=== PATIENT | female | born 1985 | race Caucasian/White ===

== ENCOUNTER 2016-08-14 10:10 | Inpatient (IN) | payer OTHER ==
[~2016-08-14] VITALS: Ht 170.2 cm; Wt 110.4 kg
[2016-08-14] MEDS ORDERED: ONDANSETRON INJ 2 MG/ML 2 ML VIAL IV STA (10:29)
[2016-08-14] MEDS ORDERED: MoRPHine SULFATE 4 MG/ML 1 ML CARP\\VIAL IV STA (10:29)
[2016-08-14] MEDS ORDERED: SODIUM CHLORIDE 0.9% 1000ML 1,000 ML IV STA (10:29)
[2016-08-14] MEDS ORDERED: DiphenhydrAMINE HCL 50 MG/ML VIAL IV STA (10:34)
--- NOTE | 2016-08-14 10:38 | EMERGENCY ROOM VISIT NOTE ---
History Report prepared by Jose Francisco: Eddie Bean Under the Supervision of: Dr. Rita Beaulieu M.D. First contact with patient: 10:25 Chief Complaint: RESPIRATORY PROBLEMS Stated Complaint: SHALLOW/HEAVY BREATHING, CHEST,SIDE,BACK-25 WKS History of Present Illness The patient is a 31 year old female who presents to the Emergency Room with complaints of persistent shortness of breath since last night. The patient notes that crying makes it more difficult to breath. She is also having pain on the left flank. She saw her doctor three days ago and was started on Prednisone. She was diagnosed with costochondritis, and at that time was also having trouble breathing along with cough and chest pain. The patient is on her third and is currently 25 weeks gestation. She has not had any complications with her . She denies any history of blood clots. The patient smokes half a pack of cigarettes per day. Source of History: patient Onset: last night Position: other (respiratory) Quality: other (shortness of breath) Timing: other (persistent) Associated Symptoms: + back pain (left flank), + chest pain, + cough Review of Systems See HPI for pertinent positives & negatives. A total of 10 systems reviewed and were otherwise negative. Past Medical & Surgical Medical Problems: (1) Depression (2) Pneumonia (3) Pulmonary embolism Surgical Problems: (1) S/P section (2) S/P tonsillectomy and adenoidectomy Family History Endometriosis Social History Smoking Status: Current Every Day Smoker Alcohol Use: none Drug Use: none Marital Status: Housing Status: lives with family Occupation Status: unemployed Current/Historical Medications Scheduled Multivit/Min/Iron/Fol Ac/Pren ( Vitamin), 1 TAB PO DAILY Prednisone (Prednisone), 1 TAB PO UD Scheduled PRN Acetaminophen (Tylenol), 650 MG PO Q6 PRN for Pain or Fever Albuterol Sulfate (Proair Respiclick), 2 PUFFS INH QID PRN for SOB/Wheezing Miscellaneous Medications Guaifenesin (Cough Syrup) Ibuprofen (Ibuprofen) Allergies Coded Allergies: No Known Allergies (Unverified , NONE, 06/02/14) Physical Exam Vital Signs Date Time Temp Pulse Resp B/P Pulse Ox O2 Delivery O2 Flow Rate FiO2 08/14/16 12:35 108 20 130/70 93 Room Air 08/14/16 11:55 103 08/14/16 11:44 Room Air 08/14/16 11:42 104 20 111/62 93 Room Air 08/14/16 11:14 98 20 112/76 94 Room Air 08/14/16 10:18 36.5 101 34 127/63 98 Room Air Physical Exam Vital signs reviewed. General: Patient is in significant discomfort, sitting up at bedside. holding her left flank. HEENT: No scleral icterus, PERRLA, neck supple. Atraumatic. Cardiovascular: Regular rate and rhythm, no extra sounds. Pulmonary: Clear to auscultation bilaterally, normal work of breathing. Abdomen: Soft, nontender, nondistended, positive bowel sounds. Gravid abdomen. Musculoskeletal: Atraumatic, no peripheral edema. Tender to palpation over the left thoracic and lumbar paraspinous muscles. No CVA tenderness. Neurologic: Patient awake alert and oriented x 3. Skin: Warm, dry, no rash Medical Decision & Procedures ER Provider Diagnostic Interpretation: X-ray results as stated below per my interpretation and radiologist interpretation. Other radiology results as stated below per my review and radiologist interpretation: CHEST ONE VIEW PORTABLE CLINICAL HISTORY: *BREG* SOB, CP dyspnea COMPARISON STUDY: 07/04/2009 FINDINGS: Bibasilar parenchymal infiltrates. Diminished respiratory volumes. Subtle left perihilar infiltrate. Pulmonary procedure clear. IMPRESSION: Bilateral basilar and perihilar parenchymal infiltrates Electronically signed by: Wicho Ambriz M.D. 08/14/2016 11:02 AM Dictated Date/Time: 08/14/2016 11:01 AM CHEST CTA for PULMONARY ARTERIES CT DOSE: 450.49 mGy.cm HISTORY: Chest pain dyspnea TECHNIQUE: Multiaxial CT images of the chest were performed following the intravenous administration of contrast to evaluate the pulmonary arteries. Maximal intensity projection images were also obtained. COMPARISON STUDY: None. FINDINGS: Study is technically poor due to patient continued aspiration during the study. There is no evidence for a central or main pulmonary embolus. There are findings suspect for second order emboli involving the right as well as left lower lobe pulmonary arterial distributions. Within the left lower lobe this is best seen on transaxial image 58 of series 107. Small circular filling defects are identified in the right lower lobe best seen transaxial image 42. Study again is negative for central or main pulmonary embolus. There are consolidative infiltrative changes within the left base as well as right middle lobe regions. Rounded patchy parenchymal infiltrative changes are identified in the upper lung regions bilaterally. All the study is technically positive for pulmonary emboli, there appear to be potentially 2 separate processes occurring. The parenchymal infiltrative changes do not appear to be suspect for pulmonary infarct. Thoracic aorta is normal in course and caliber. There is no significant hilar or mediastinal dana change. IMPRESSION: 1. Difficult study to interpret. 2. No evidence for a main or central pulmonary embolus. 3. Several small second-order third or emboli primarily involving the left and to a lesser extent right lower lobe distributions. 4. Diffuse bilateral consolidative infiltrative changes in the lower lung regions bilaterally with additional round atelectatic and/or infiltrative changes involving the upper lungs bilaterally. 5. This study does not appear to support the possibility that all findings are secondary to pulmonary emboli,. 6. Possibly of a superimposed multifocal infiltrative/ inflammatory/pulmonary edematous pattern must be a consideration. Electronically signed by: Wicho Ambriz M.D. 08/14/2016 12:31 PM Dictated Date/Time: 08/14/2016 12:15 PM Laboratory Results Test 08/14/16 10:45 Immature Granulocyte % (Auto) 0.6 % White Blood Count 27.19 K/uL (4.8-10.8) Red Blood Count 4.17 M/uL (4.2-5.4) Hemoglobin 12.0 g/dL (12.0-16.0) Hematocrit 34.7 % (37-47) Mean Corpuscular Volume 83.2 fL (80-100) Mean Corpuscular Hemoglobin 28.8 pg (25-34) Mean Corpuscular Hemoglobin Concent 34.6 g/dl (32-36) Platelet Count 352 K/uL (130-400) Mean Platelet Volume 9.7 fL (7.4-10.4) Neutrophils (%) (Auto) 92.3 % Lymphocytes (%) (Auto) 3.8 % Monocytes (%) (Auto) 3.0 % Eosinophils (%) (Auto) 0.0 % Basophils (%) (Auto) 0.3 % Neutrophils # (Auto) 25.14 K/uL (1.4-6.5) Lymphocytes # (Auto) 1.02 K/uL (1.2-3.4) Monocytes # (Auto) 0.81 K/uL (0.11-0.59) Eosinophils # (Auto) 0.00 K/uL (0-0.5) Basophils # (Auto) 0.07 K/uL (0-0.2) Immature Granulocyte # (Auto) 0.15 K/uL (0.00-0.02) Echinocytes 1+ Prothrombin Time 10.2 SECONDS (9.0-12.0) Prothromb Time International Ratio 1.0 (0.9-1.1) Activated Partial Thromboplast Time 28.1 SECONDS (21.0-31.0) Partial Thromboplastin Ratio 1.1 Total Bilirubin 0.4 mg/dl (0.2-1) Direct Bilirubin 0.1 mg/dl (0-0.2) Aspartate Amino Transf (AST/SGOT) 9 U/L (15-37) Alanine Aminotransferase (ALT/SGPT) 26 U/L (12-78) Alkaline Phosphatase 119 U/L (45-117) Troponin I < 0.015 ng/ml (0-0.045) Pro-B-Type Natriuretic Peptide 254 pg/ml (0-450) Total Protein 8.2 gm/dl (6.4-8.2) Albumin 2.6 gm/dl (3.4-5.0) Laboratory results per my review. Medications Administered Medications (Trade) Dose Ordered Sig/Rory Route Start Time Stop Time Status Last Admin Dose Admin Sodium Chloride (Nss 1000ml) 1,000 ml @ 999 mls/hr Q1H1M STAT IV 08/14/16 10:29 08/14/16 11:29 DC 08/14/16 10:29 999 MLS/HR Morphine Sulfate (MoRPHine SULFATE INJ) 4 mg NOW STAT IV 08/14/16 10:29 08/14/16 10:31 DC 08/14/16 11:17 4 MG Ondansetron HCl (Zofran Inj) 4 mg NOW STAT IV 08/14/16 10:29 08/14/16 10:31 DC 08/14/16 11:16 4 MG Diphenhydramine HCl (Benadryl Inj) 25 mg NOW STAT IV 08/14/16 10:34 08/14/16 10:35 DC 08/14/16 11:22 25 MG Albuterol/ Ipratropium (Duoneb) 3 ml NOW STAT INH 08/14/16 11:23 08/14/16 11:25 DC 08/14/16 11:23 3 ML Ceftriaxone Sodium 1 gm 1 gm NOW STAT IV 08/14/16 11:23 08/14/16 11:25 DC 08/14/16 11:23 1 GM Azithromycin/ Dextrose (Zithromax IV/D5 250ml) 255 ml @ 125 mls/hr ONE STAT IV 08/14/16 11:23 08/14/16 13:25 DC 08/14/16 12:30 125 MLS/HR ECG Indication: SOB/dyspnea Rate (beats per minute): 95 Rhythm: normal sinus Findings: T-wave inversion (inferior and lateral), no ectopy ED Course 1025: Past medical records reviewed. The patient was evaluated in room A3. A complete history and physical examination was performed. 1030: Zofran 4 mg IV, Morphine Sulfate 4 mg IV, NSS 1000 ml @ 999 mls/hr. 1034: Benadryl 25 mg IV. 1123: Azithromycin 500 mg / dextrose 255 lm @ 125 mls/hr, Rocephin 1 gm IV, DuoNeb 3 ml INH. 1142: Updated the patient. 1237: Spoke with Dr. Byrd, Numerologist, who recommended medicine be paged. 1245: [facility] The patient will be evaluated. Medical Decision Differential diagnosis: Etiologies such as infections, reactive airway disease, pneumonia, pneumothorax , COPD, CHF, cardiac ischemia, pulmonary embolism, musculoskeletal, gastrointestinal, as well as others were entertained. This patient was evaluated and appeared to be in significant distress. IV access was obtained and laboratory work was drawn. The patient was placed on the hospital medical biller and found to be in a sinus tachycardia. She did seem to be uncomfortable and was given IV morphine 2 doses. Chest x-ray was performed and reveals bibasilar and perihilar infiltrates. CT scan of the chest was performed due to the level of the patient's pain. The CT scan of the chest is indicative of bilateral PE and diffuse infiltrative changes. It does not appear that the infiltrates are related to the PEs. The patient was medicated with IV ceftriaxone and IV azithromycin after blood cultures were obtained. Laboratory work reveals a significant leukocytosis. I discussed the case with Dr. Floyd of [facility] who has requested internal medicine evaluation and admission. He is happy to consult on the patient. Patient was made aware of the findings and agrees. The hospitalist service was contacted. They have requested that no anticoagulants be administered until they evaluate. Consults Time Called: 1230 Consulting Physician: Dr. Floyd Numerologist Returned Call: 1237 1237: Spoke with Dr. Floyd Numerologist, who recommended medicine be paged. Additional Consults: Time Called: 1240 Consulted Physician: Sujata Croft PA-C, [facility]. Returned Call: 1245 Additional Comments: 1245: Spoke with Sujata Croft PA-C, [facility]. The patient will be evaluated. Impression Primary Impression: Pulmonary embolism Additional Impressions: Pneumonia Second trimester Scribe Attestation The scribe's documentation has been prepared under my direction and personally reviewed by me in its entirety. I confirm that the note above accurately reflects all work, treatment, procedures, and medical decision making performed by me. Departure Information Dispostion Being Evaluated By Hospitalist Referrals No Doctor, Assigned (PCP) Patient Instructions My [facility] Problem Qualifiers Primary Impression: Pulmonary embolism Pulmonary embolism type: other Chronicity: acute Acute cor pulmonale presence: without acute cor pulmonale Qualified Codes: I26.99 - Other pulmonary embolism without acute cor pulmonale Additional Impressions: Pneumonia Pneumonia type: due to unspecified organism Laterality: bilateral Lung location: unspecified part of lung Qualified Codes: J18.9 - Pneumonia, unspecified organism
[2016-08-14 10:59] LABS: HEMATOCRIT 34.7 % (37-47); MEAN CELL VOLUME 83.2 fL (80-100); MEAN CORPUSCULAR HEMOGLOBIN 28.8 pg (25-34); MEAN CORPUSCULAR HGB CONC 34.6 g/dl (32-36); MEAN PLATELET VOLUME 9.7 fL (7.4-10.4); PLATELET COUNT 352 K/uL (130-400); RED BLOOD COUNT 4.17 M/uL (4.2-5.4); WHITE BLOOD COUNT 27.19 K/uL (4.8-10.8)
--- NOTE | 2016-08-14 11:04 | DIAGNOSTIC IMAGING REPORT ---
CHEST ONE VIEW PORTABLE CLINICAL HISTORY: *BREG* SOB, CP dyspnea COMPARISON STUDY: 07/04/2009 FINDINGS: Bibasilar parenchymal infiltrates. Diminished respiratory volumes. Subtle left perihilar infiltrate. Pulmonary procedure clear. IMPRESSION: Bilateral basilar and perihilar parenchymal infiltrates Electronically signed by: Wicho Ambriz M.D. 08/14/2016 11:02 AM Dictated Date/Time: 08/14/2016 11:01 AM
[2016-08-14 11:16] LABS: BUN/CREATININE RATIO 11.6 (10-20); CALCIUM 9.4 mg/dl (8.5-10.1); CREATININE 0.88 mg/dl (0.60-1.20); POTASSIUM 3.3 mmol/L (3.5-5.1)
[2016-08-14] MEDS ORDERED: CEFTRIAXONE SOD INJ 1 GM ADDVIAL IV STA (11:23)
[2016-08-14] MEDS ORDERED: ALBUT/IPRATROP 3MG/0.5MG NEB 3 ML VIAL INH STA (11:23)
[2016-08-14] MEDS ORDERED: AZITHROMYCIN IV 500 MG in DEXTROSE 5% 250ML 250 ML IV STA (11:23)
[2016-08-14] MEDS ORDERED: PRED-301 PO (11:45)
[2016-08-14] MEDS ORDERED: PRENTAB26 PO (11:45)
[2016-08-14 11:47] LABS: BASO % 0.3 %; BASO ABS # 0.07 K/uL (0-0.2); COMPLETE YES; ECHINOCYTES 1+; IG% 0.6 %; LYMPH % 3.8 %; LYMPH ABS # 1.02 K/uL (1.2-3.4); NEUT % 92.3 %
[2016-08-14] MEDS ORDERED: OPTIRAY 320 IV PRN (12:15)
--- NOTE | 2016-08-14 12:32 | DIAGNOSTIC IMAGING REPORT ---
CHEST CTA for PULMONARY ARTERIES CT DOSE: 450.49 mGy.cm HISTORY: Chest pain dyspnea TECHNIQUE: Multiaxial CT images of the chest were performed following the intravenous administration of contrast to evaluate the pulmonary arteries. Maximal intensity projection images were also obtained. COMPARISON STUDY: None. FINDINGS: Study is technically poor due to patient continued aspiration during the study. There is no evidence for a central or main pulmonary embolus. There are findings suspect for second order emboli involving the right as well as left lower lobe pulmonary arterial distributions. Within the left lower lobe this is best seen on transaxial image 58 of series 107. Small circular filling defects are identified in the right lower lobe best seen transaxial image 42. Study again is negative for central or main pulmonary embolus. There are consolidative infiltrative changes within the left base as well as right middle lobe regions. Rounded patchy parenchymal infiltrative changes are identified in the upper lung regions bilaterally. All the study is technically positive for pulmonary emboli, there appear to be potentially 2 separate processes occurring. The parenchymal infiltrative changes do not appear to be suspect for pulmonary infarct. Thoracic aorta is normal in course and caliber. There is no significant hilar or mediastinal dana change. IMPRESSION: 1. Difficult study to interpret. 2. No evidence for a main or central pulmonary embolus. 3. Several small second-order third or emboli primarily involving the left and to a lesser extent right lower lobe distributions. 4. Diffuse bilateral consolidative infiltrative changes in the lower lung regions bilaterally with additional round atelectatic and/or infiltrative changes involving the upper lungs bilaterally. 5. This study does not appear to support the possibility that all findings are secondary to pulmonary emboli,. 6. Possibly of a superimposed multifocal infiltrative/ inflammatory/pulmonary edematous pattern must be a consideration. Electronically signed by: Wicho Ambriz M.D. 08/14/2016 12:31 PM Dictated Date/Time: 08/14/2016 12:15 PM
[2016-08-14 13:04] LABS: PARTIAL THROMBOPLASTIN RATIO 1.1; PROTHROMBIN TIME (PATIENT) 10.2 SECONDS (9.0-12.0)
[2016-08-14] MEDS ORDERED: ONDANSETRON INJ 2 MG/ML 2 ML VIAL IV PRN (13:30)
[2016-08-14] MEDS ORDERED: ENOXAPARIN 1 MG/KG SQ SCH (13:30)
[2016-08-14] MEDS ORDERED: ALBU18002 INH (13:32)
[2016-08-14] MEDS ORDERED: IBUP1CAP9 (13:33)
[2016-08-14] MEDS ORDERED: TYL325X PO (13:33)
[2016-08-14] MEDS ORDERED: GUAI100S18 (13:33)
[2016-08-14 13:40] VITALS: O2SAT 93; Ht 170.2 cm; Wt 110.4 kg
[2016-08-14] MEDS ORDERED: LEVALBUTEROL/IPRATROPIUM NEB INH PRN (14:00)
[2016-08-14 14:18] LABS: MAGNESIUM 2.1 mg/dl (1.8-2.4)
--- NOTE | 2016-08-14 14:38 | History and Physical ---
History & Physical Date & Time of Service: Aug 14, 2016 at 13:51 Chief Complaint: Shallow/Heavy Breathing, Chest,Side,Back-25 Wks Primary Care Physician: No Doctor, Assigned History of Present Illness Source: patient, clinic records This is a 31 year old female chronic smoker who is 25 weeks who presents to the ED with SOB. Patient became ill 6 days ago with cough productive of green sputum and chest pain. CP is constant for 6 days and worsens with exertion, talking, and deep inspiration. Currently rates pain 9/ 10. Morphine in ER helped initially. Starting 5 days ago she has associated fevers up to 102.9, chills, and shortness of breath. The SOB occurs at rest and worsens with exertion. Pt was seen by Dr. Nuñez on 08/11, was dx with viral URI and costochondritis and was started on albuterol inhaler and prednisone taper which she states did not help. She admits to heart racing and anxiety. Bilateral ankle edema is no worse than baseline. Has mild nausea when in severe pain. Not eating well. She is feeling the baby move normally. Pt denies nasal congestion, ear ache, sore throat, vomiting, diarrhea, dysuria, frequency, uterine contractions, vaginal bleeding, other abnormal bleeding, calf pain. Denies hx of prior DVT/ PE, lung disease, cardiac disorder, history of abnormal bleeding. No recent travel. Her children at home also have fever. Past Medical/Surgical History Medical Problems: (1) Depression Status: Chronic Surgical Problems: (1) S/P section Status: Chronic (2) S/P tonsillectomy and adenoidectomy Status: Chronic Family History Endometriosis Denies family hx of blood clots or cardiac disorder. Social History Smoking Status: Current Every Day Smoker (1/2 ppd) Alcohol Use: none Drug Use: none Marital Status: Housing status: lives with family (lives with her children. she and her boyfriend recently broke up. ) Occupational Status: unemployed Immunizations History of Influenza Vaccine: Unknown History of Tetanus Vaccine?: Unknown Tetanus Immunization Date: Jul 04, 2009 History of Pneumococcal: Unknown History of Hepatitis B Vaccine: Unknown Multi-Drug Resistant Organisms History of MDRO: No Allergies Coded Allergies: No Known Allergies (Unverified , NONE, 06/02/14) Home Medications Scheduled Multivit/Min/Iron/Fol Ac/Pren ( Vitamin), 1 TAB PO DAILY Prednisone (Prednisone), 1 TAB PO UD Scheduled PRN Acetaminophen (Tylenol), 650 MG PO Q6 PRN for Pain or Fever Albuterol Sulfate (Proair Respiclick), 2 PUFFS INH QID PRN for SOB/Wheezing Miscellaneous Medications Guaifenesin (Cough Syrup) Ibuprofen (Ibuprofen) Review of Systems Ten point ROS performed with pertinent positives and negatives noted in HPI. Physical Exam Vital Signs Date Time Temp Pulse Resp B/P Pulse Ox O2 Delivery O2 Flow Rate FiO2 08/14/16 12:35 108 20 130/70 93 Room Air 08/14/16 11:55 103 08/14/16 11:44 Room Air 08/14/16 11:42 104 20 111/62 93 Room Air 08/14/16 11:14 98 20 112/76 94 Room Air 08/14/16 10:18 36.5 101 34 127/63 98 Room Air General Appearance: + pertinent finding (alert ill appearing 31 year old female , anxious and tearful at times, sitting on side of bed) Head: normocephalic, atraumatic Eyes: normal inspection ENT: hearing grossly normal, pharynx normal Neck: supple, trachea midline Respiratory/Chest: no respiratory distress, + decreased breath sounds, + crackles (crackles in right mid lung), + pertinent finding (+ reproducible chest wall pain) Cardiovascular: no murmur, + tachycardia (rate 100, regular) Abdomen/GI: normal bowel sounds, non tender, soft, + pertinent finding (gravid uterus) Extremities/Musculoskelatal: no calf tenderness, + pertinent finding (trace ankle edema bilaterally) Neurologic/Psych: alert, oriented x 3, + pertinent finding (anxious, grossly nonfocal) Skin: normal color, warm/dry Diagnostics Laboratory Results Results Past 24 Hours Test 08/14/16 10:45 08/14/16 13:42 Range/Units White Blood Count 27.19 4.8-10.8 K/uL Red Blood Count 4.17 4.2-5.4 M/uL Hemoglobin 12.0 12.0-16.0 g/dL Hematocrit 34.7 37-47 % Mean Corpuscular Volume 83.2 80-100 fL Mean Corpuscular Hemoglobin 28.8 25-34 pg Mean Corpuscular Hemoglobin Concent 34.6 32-36 g/dl Platelet Count 352 130-400 K/uL Mean Platelet Volume 9.7 7.4-10.4 fL Neutrophils (%) (Auto) 92.3 % Lymphocytes (%) (Auto) 3.8 % Monocytes (%) (Auto) 3.0 % Eosinophils (%) (Auto) 0.0 % Basophils (%) (Auto) 0.3 % Neutrophils # (Auto) 25.14 1.4-6.5 K/uL Lymphocytes # (Auto) 1.02 1.2-3.4 K/uL Monocytes # (Auto) 0.81 0.11-0.59 K/uL Eosinophils # (Auto) 0.00 0-0.5 K/uL Basophils # (Auto) 0.07 0-0.2 K/uL RDW Standard Deviation 40.9 36.4-46.3 fL RDW Coefficient of Variation 13.4 11.5-14.5 % Immature Granulocyte % (Auto) 0.6 % Immature Granulocyte # (Auto) 0.15 0.00-0.02 K/uL Echinocytes 1+ Prothrombin Time 10.2 9.0-12.0 SECONDS Prothromb Time International Ratio 1.0 0.9-1.1 Activated Partial Thromboplast Time 28.1 21.0-31.0 SECONDS Partial Thromboplastin Ratio 1.1 Sodium Level 140 136-145 mmol/L Potassium Level 3.3 3.5-5.1 mmol/L Chloride Level 102 98-107 mmol/L Carbon Dioxide Level 24 21-32 mmol/L Anion Gap 14.0 3-11 mmol/L Blood Urea Nitrogen 10 7-18 mg/dl Creatinine 0.88 0.60-1.20 mg/dl Est Creatinine Clear Calc Drug Dose 119.7 ml/min Estimated GFR () 102.2 Estimated GFR (Non- 88.2 BUN/Creatinine Ratio 11.6 10-20 Random Glucose 142 70-99 mg/dl Calcium Level 9.4 8.5-10.1 mg/dl Total Bilirubin 0.4 0.2-1 mg/dl Direct Bilirubin 0.1 0-0.2 mg/dl Aspartate Amino Transf (AST/SGOT) 9 15-37 U/L Alanine Aminotransferase (ALT/SGPT) 26 12-78 U/L Alkaline Phosphatase 119 45-117 U/L Total Protein 8.2 6.4-8.2 gm/dl Albumin 2.6 3.4-5.0 gm/dl Microbiology Results 08/14/16 Blood Culture, Khushi Batch Pending 08/14/16 Blood Culture, Khushi Batch Pending Diagnostic Radiology CHEST ONE VIEW PORTABLE CLINICAL HISTORY: *BREG* SOB, CP dyspnea COMPARISON STUDY: 07/04/2009 FINDINGS: Bibasilar parenchymal infiltrates. Diminished respiratory volumes. Subtle left perihilar infiltrate. Pulmonary procedure clear. IMPRESSION: Bilateral basilar and perihilar parenchymal infiltrates CHEST CTA for PULMONARY ARTERIES CT DOSE: 450.49 mGy.cm HISTORY: Chest pain dyspnea TECHNIQUE: Multiaxial CT images of the chest were performed following the intravenous administration of contrast to evaluate the pulmonary arteries. Maximal intensity projection images were also obtained. COMPARISON STUDY: None. FINDINGS: Study is technically poor due to patient continued aspiration during the study. There is no evidence for a central or main pulmonary embolus. There are findings suspect for second order emboli involving the right as well as left lower lobe pulmonary arterial distributions. Within the left lower lobe this is best seen on transaxial image 58 of series 107. Small circular filling defects are identified in the right lower lobe best seen transaxial image 42. Study again is negative for central or main pulmonary embolus. There are consolidative infiltrative changes within the left base as well as right middle lobe regions. Rounded patchy parenchymal infiltrative changes are identified in the upper lung regions bilaterally. All the study is technically positive for pulmonary emboli, there appear to be potentially 2 separate processes occurring. The parenchymal infiltrative changes do not appear to be suspect for pulmonary infarct. Thoracic aorta is normal in course and caliber. There is no significant hilar or mediastinal dana change. IMPRESSION: 1. Difficult study to interpret. 2. No evidence for a main or central pulmonary embolus. 3. Several small second-order third or emboli primarily involving the left and to a lesser extent right lower lobe distributions. 4. Diffuse bilateral consolidative infiltrative changes in the lower lung regions bilaterally with additional round atelectatic and/or infiltrative changes involving the upper lungs bilaterally. 5. This study does not appear to support the possibility that all findings are secondary to pulmonary emboli,. 6. Possibly of a superimposed multifocal infiltrative/ inflammatory/pulmonary edematous pattern must be a consideration. EKG NSR, 95 bpm, T wave abnormality in inferior leads and anterolateral leads. no prior EKG available for comparison. Impression Assessment and Plan SHORTNESS OF BREATH Multifactorial secondary to bilateral pulmonary emboli, pneumonia, question of pulmonary edema on CT Management of PE and pneumonia noted below Does not appear overtly volume overloaded on exam Check Pro-BNP- WNL Check echo given question of pulm edema, known bilat PE with T wave abnormalities on EKG CHEST PAIN Reproducible on examination; possibly musculoskeletal vs. pleuritic pain EKG shows nonspecific T wave abnormalities Check troponin- WNL Improved with morphine in ER Will give PRN oxycodone ( category B) and acetaminophen for pain control IV Benadryl PRN anxiety which should help with pain control BILATERAL PULMONARY EMBOLI CT chest- no main/ central PE, + Several small second-order third or emboli primarily involving the left and to a lesser extent right lower lobe distributions Provoked by hypercoagulable state of , also at risk due to smoking Start therapeutic weight based Lovenox SEPSIS due to PNEUMONIA CT chest- diffuse bilateral consolidative infiltrative changes in the lower lung regions bilaterally with additional round atelectatic and/or infiltrative changes involving the upper lungs bilaterally. Meets sepsis criteria with tachycardia (PE and anxiety likely contributing); leukocytosis (WBC 27k- outpatient prednisone may be contributing); no hypotension; lactic acid 2.6 -> 3.0 on recheck -> Received 1 liter IVF's in ER, will give additional 1 liter bolus then run IVF's at 125/hour Check blood cultures, sputum culture, influenza PCR Given dose of azithromycin and ceftriaxone in ER; will broaden abx coverage with Zosyn and clindamycin which are both category B Nebs PRN HYPOKALEMIA Likely from poor PO intake Mag is WNL Replace and monitor [employer] consulted; pt seen by Dr. Alvarez in ER; appreciate input Daily non stress tests FULL CODE DISPOSITION Follows with Dr. Banks for primary care Patient seen in collaboration with Dr. Rodriguez. Please see her addendum. I have seen, examined and discussed this patient with Antonia Croft and I agree with the above note. Patient with fever, productive cough, chest pain for the past couple of days. Vitals notable for mild tachycardia. PE: General- awake; alert; tearful; anxious appearing Eyes- EOMI; no scleral icterus Neck- no stridor; trachea midline Lungs- coarse breath sounds throughout Heart- RRR; no m/r/g Back- no gross abnormalities Extremities- no appreciable edema; no deformity Neuro- no focal deficits Skin- no appreciable rash or bruise Labs, imaging and EKG reviewed. Sepsis: Tachycardia, leukocytosis, elevated lactate. Source is pneumonia. Continue IVF's. Received Azithromycin and Ceftriaxone in ED. Broaden coverage to Zosyn and Clindamycin ( b). Blood and sputum cultures pending. Flu negative. Pneumonia: Noted on CT chest. Patient with reported fevers, elevated WBC count, productive cough. Received Azithromycin and Ceftriaxone in ED. Broaden coverage to Zosyn and Clindamycin ( b). Blood and sputum cultures pending. Subsegmental PE's: Noted on CT chest. Risk factors are , obesity and smoking. Start therapeutic dose Lovenox. EKG abnormalities: Troponin normal. Check TTE. : OB consulted. Agree with remainder of plan as outlined above. VTE Prophylaxis VTE Risk Assessment Done? Y/N: Yes Risk Level: High Given or contraindicated: Enoxaparin (Lovenox)SQ
[2016-08-14 14:50] VITALS: BP 104/77; PULSE 102; TEMP 36.6; O2SAT 96
[2016-08-14] MEDS ORDERED: DiphenhydrAMINE INJ 25 MG in SYRINGE 0 ML IV PRN (15:00)
[2016-08-14] MEDS: OXYCODONE HCL IR 5 MG TAB (IMMEDIATE RELEASE) PO PRN ×2 (15:16→22:18)
[2016-08-14] MEDS: SODIUM CHLORIDE 0.9% 1000ML 1,000 ML IV SCH ×2 (15:19→19:36)
[2016-08-14] MEDS ORDERED: POTASSIUM CHLORIDE 20 MEQ TABCR PO ONE (15:30)
[2016-08-14] MEDS ORDERED: DiphenhydrAMINE HCL 50 MG/ML VIAL IV ONE (15:30)
[2016-08-14] MEDS: ENOXAPARIN 120 MG/0.8 ML SYR SQ SCH (15:59)
--- NOTE | 2016-08-14 17:03 | Medical Consult ---
Consultation Date of Consultation: Aug 14, 2016. Attending Physician: Sarah Hensley DO Reason for Consultation: at 25.6 weeks, Bilateral pulmonary embolism History of Present Illness Patient is a 31 y/o @ 25.6 weeks comes in with increased chest/back pain and difficulty breathing. She states the chest tightness and back pain back began last Monday/monday along with occasional fever/chills Her PCP placed her on a short dose of steroids with an albuterol inhaler on 08/11 secondary to costochondritis and an URI. Her pain and difficulty breathing became worse last night which prompted her to come in for evaluation. CT scan showed bilateral PE' s and possible infiltrates. The patient denies any history of blood clots in the past. She is a 1/2 ppd smoker. has been uncomplicated thus far. Has a history of two term sections in 2009 and 2011. Had 1 SAB in 2014. Past Medical/Surgical History Medical Problems: (1) Second trimester Status: Acute Family History Endometriosis Social History Smoking Status: Current Every Day Smoker (1/2 ppd) Alcohol Use: none Drug Use: none Marital Status: Housing Status: lives with family Occupation Status: unemployed Allergies Coded Allergies: No Known Allergies (Unverified , NONE, 06/02/14) Home Medications Reported Home Medications Medications Dose Route/Sig Max Daily Dose Days Date Category Dose Instructions Cough Syrup (Guaifenesin) 100 Mg/5 Ml Syp 08/14/16 Reported Ibuprofen 200 Mg Cap 08/14/16 Reported Tylenol (Acetaminophen) 325 Mg Tab 650 Mg PO Q6 PRN 08/14/16 Reported Proair Respiclick (Albuterol Sulfate) 108 Mcg/Act Aer 2 Puffs INH QID PRN 08/14/16 Reported Prednisone Unknown Strength Tab 1 Tab PO UD 08/14/16 Reported TAPER DOSE Vitamin (Prenat Multivit/[place]/Iron/Folic Ac) Tab 1 Tab PO DAILY 08/14/16 Reported Current Inpatient Medications Current Inpatient Medications Medications (Trade) Dose Ordered Sig/Rory Route Start Time Stop Time Status Last Admin Dose Admin Ioversol (Optiray 320) 125 ml UD PRN IV 08/14/16 12:15 08/18/16 12:14 Acetaminophen (Tylenol Tab) 650 mg Q4H PRN PO 08/14/16 13:30 09/13/16 13:29 Ondansetron HCl (Zofran Inj) 4 mg Q6H PRN IV 08/14/16 13:30 09/13/16 13:29 Prenat Multivit/ [place]/Iron/Folic Ac ( Vitamin Tab) 1 tab DAILY PO 08/15/16 09:00 09/14/16 08:59 Oxycodone HCl 5 mg 5 mg Q6H PRN PO 08/14/16 14:00 08/28/16 13:59 08/14/16 15:16 5 MG Ceftriaxone Sodium 1 gm/ Dextrose 50 ml @ 100 mls/hr DAILY@0800 IV 08/15/16 08:00 08/22/16 07:59 Sodium Chloride 1,000 ml @ 125 mls/hr Q8H IV 08/14/16 14:45 09/13/16 14:44 08/14/16 15:19 125 MLS/HR Diphenhydramine HCl/Syringe (Benadryl Inj/ Syringe) 0.5 ml @ 1 mls/min Q6H PRN IV 08/14/16 15:00 09/13/16 14:59 Ipratropium [place] (Atrovent 0.02% 0.5MG/2.5ML Neb) 0.5 mg Q4H PRN INH 08/14/16 15:30 09/13/16 15:29 Levalbuterol (Xopenex 1.25MG/ 0.5ML Neb) 1.25 mg Q4H PRN INH 08/14/16 15:30 09/13/16 15:29 Enoxaparin Sodium (Lovenox Inj) 111 mg Q12@0600,1800 SQ 08/14/16 16:00 09/13/16 15:59 08/14/16 15:59 111 MG Azithromycin (Zithromax Tab) 500 mg Q24H PO 08/15/16 12:00 08/22/16 11:59 Dextromethorphan Polymer Complex (Delsym Susp) 30 mg Q8H PRN PO 08/14/16 15:45 09/13/16 15:44 Review of Systems Constitutional: + chills, + fever Respiratory: + cough, + sputum Cardiovascular: + chest pain Abdomen: No GI bleeding, No constipation, No diarrhea, No nausea, No pain, No problem reported, No vomiting Musculoskeletal: No calf pain, No joint pain, No muscle pain, No problem reported, No swelling Genitourinary - Female: No dysmenorrhea, No dysuria, No hematuria, No menorrhagia, No metrorrhagia, No , No problem reported, No rash, No urinary frequency, No urinary incontinence, No urinary retention, No urinary urgency, No vaginal bleeding, No vaginal discharge, No vaginal itching, No vulvodynia Neurologic: No balance problems, No memory loss, No numbness/tingling, No paralysis, No problem reported, No vertigo, No weakness Psychiatric: No anhedonism, No anxiety, No depression symptoms, No insomnia, No problem reported, No substance abuse Endocrine: No excessive thirst, No excessive urination, No fatigue, No problem reported Hematologic / Lymphatic: No abnormal bleeding/bruising, No clotting problems, No night sweats, No problem reported, No swollen lymph nodes Integumentary: No bleeding, No color change, No itch, No new/changing skin lesions, No problem reported, No rash Allergic / Immunologic: No environmental allergies, No food allergies, No frequent infections, No hives, No pet sensitivities, No poor healing, No problem reported, No prolonged convalescence, No seasonal allergies Physical Exam Date Time Temp Pulse Resp B/P Pulse Ox O2 Delivery O2 Flow Rate FiO2 08/14/16 14:50 36.6 102 26 104/77 96 Room Air 08/14/16 14:19 104 24 115/68 93 Room Air 08/14/16 13:40 93 Room Air 08/14/16 12:35 108 20 130/70 93 Room Air 08/14/16 11:55 103 08/14/16 11:44 Room Air 08/14/16 11:42 104 20 111/62 93 Room Air 08/14/16 11:14 98 20 112/76 94 Room Air 08/14/16 10:18 36.5 101 34 127/63 98 Room Air General Appearance: WD/WN, no apparent distress Respiratory/Chest: + decreased breath sounds, + crackles Cardiovascular: regular rate, rhythm Abdomen/GI: normal bowel sounds, non tender, soft Neurologic/Psych: alert, normal reflexes, oriented x 3 Skin: normal color, warm/dry Laboratory Results Last 24 Hours Test 08/14/16 10:45 08/14/16 14:02 08/14/16 16:04 08/14/16 16:05 White Blood Count 27.19 K/uL Red Blood Count 4.17 M/uL Hemoglobin 12.0 g/dL Hematocrit 34.7 % Mean Corpuscular Volume 83.2 fL Mean Corpuscular Hemoglobin 28.8 pg Mean Corpuscular Hemoglobin Concent 34.6 g/dl Platelet Count 352 K/uL Mean Platelet Volume 9.7 fL Neutrophils (%) (Auto) 92.3 % Lymphocytes (%) (Auto) 3.8 % Monocytes (%) (Auto) 3.0 % Eosinophils (%) (Auto) 0.0 % Basophils (%) (Auto) 0.3 % Neutrophils # (Auto) 25.14 K/uL Lymphocytes # (Auto) 1.02 K/uL Monocytes # (Auto) 0.81 K/uL Eosinophils # (Auto) 0.00 K/uL Basophils # (Auto) 0.07 K/uL RDW Standard Deviation 40.9 fL RDW Coefficient of Variation 13.4 % Immature Granulocyte % (Auto) 0.6 % Immature Granulocyte # (Auto) 0.15 K/uL Echinocytes 1+ Prothrombin Time 10.2 SECONDS Prothromb Time International Ratio 1.0 Activated Partial Thromboplast Time 28.1 SECONDS Partial Thromboplastin Ratio 1.1 Sodium Level 140 mmol/L Potassium Level 3.3 mmol/L Chloride Level 102 mmol/L Carbon Dioxide Level 24 mmol/L Anion Gap 14.0 mmol/L Blood Urea Nitrogen 10 mg/dl Creatinine 0.88 mg/dl Est Creatinine Clear Calc Drug Dose 119.7 ml/min Estimated GFR () 102.2 Estimated GFR (Non- 88.2 BUN/Creatinine Ratio 11.6 Random Glucose 142 mg/dl Calcium Level 9.4 mg/dl Magnesium Level 2.1 mg/dl Total Bilirubin 0.4 mg/dl Direct Bilirubin 0.1 mg/dl Aspartate Amino Transf (AST/SGOT) 9 U/L Alanine Aminotransferase (ALT/SGPT) 26 U/L Alkaline Phosphatase 119 U/L Troponin I < 0.015 ng/ml Pro-B-Type Natriuretic Peptide 254 pg/ml Total Protein 8.2 gm/dl Albumin 2.6 gm/dl Lactic Acid Level 2.6 mmol/L CT chest: FINDINGS: Study is technically poor due to patient continued aspiration during the study. There is no evidence for a central or main pulmonary embolus. There are findings suspect for second order emboli involving the right as well as left lower lobe pulmonary arterial distributions. Within the left lower lobe this is best seen on transaxial image 58 of series 107. Small circular filling defects are identified in the right lower lobe best seen transaxial image 42. Study again is negative for central or main pulmonary embolus. There are consolidative infiltrative changes within the left base as well as right middle lobe regions. Rounded patchy parenchymal infiltrative changes are identified in the upper lung regions bilaterally. All the study is technically positive for pulmonary emboli, there appear to be potentially 2 separate processes occurring. The parenchymal infiltrative changes do not appear to be suspect for pulmonary infarct. Thoracic aorta is normal in course and caliber. There is no significant hilar or mediastinal dana change. IMPRESSION: 1. Difficult study to interpret. 2. No evidence for a main or central pulmonary embolus. 3. Several small second-order third or emboli primarily involving the left and to a lesser extent right lower lobe distributions. 4. Diffuse bilateral consolidative infiltrative changes in the lower lung regions bilaterally with additional round atelectatic and/or infiltrative changes involving the upper lungs bilaterally. 5. This study does not appear to support the possibility that all findings are secondary to pulmonary emboli,. 6. Possibly of a superimposed multifocal infiltrative/ inflammatory/pulmonary edematous pattern must be a consideration. Assessment & Plan 31 y/o @ 25.6 weeks, Bilateral PE, pneumonia -Agree with lovenox and antibiotics per medicine. -Will dopple heart tones q shift. -Once discharged, i urged patient to make a follow up appointment with our office. Will need an MFM consult. -Thank you for the consult please don't hesitate to page us with any further concerns or questions.
[2016-08-14] MEDS ORDERED: SODIUM CHLORIDE 0.9% 1000ML 1,000 ML IV SCH (17:15)
[2016-08-14 18:00] LABS: INFLUENZA A PCR Neg for Influ A (NEG); INFLUENZA B PCR Neg for Influ B (NEG)
[2016-08-14] MEDS ORDERED: PIPERACILL/TAZOBAC CONSULT ACTIVE PRN (18:00)
[2016-08-14] MEDS ORDERED: PIPERACILL/TAZOBAC IV 4.5 GM in DEXTROSE 5% 100ML IV ONE (18:00)
[2016-08-14] MEDS ORDERED: CLINDAMYCIN CONSULT ACTIVE PRN ×2 (18:00)
[2016-08-14 19:26] VITALS: BP 118/70; PULSE 106; TEMP 37.5; O2SAT 99
--- NOTE | 2016-08-14 22:14 | Progress Note ---
Progress Note Post Crystalloid Evaluation Date: Aug 14, 2016 Time: 22:12 Subjective Patient states that she feels about the same. Still with productive cough, pleuritic chest pain. Physical Exam Vital Signs: Vital Signs Date Time Temp Pulse Resp B/P Pulse Ox O2 Delivery O2 Flow Rate FiO2 08/14/16 19:26 37.5 106 22 118/70 99 Room Air Lungs: + decreased breath sounds Heart: + tachycardia Peripheral Pulse: Normal Skin: [place], Unremarkable Assessment & Plan No change to plan per HPI
[2016-08-14] MEDS: DiphenhydrAMINE HCL 50 MG/ML VIAL IV PRN (22:18)
[2016-08-14 22:24] VITALS: PULSE 116; O2SAT 91
[2016-08-14] MEDS: IPRATROPIUM BROMIDE NEB SOLN 0.02% 2.5 ML VIAL INH PRN (22:24)
[2016-08-14] MEDS: LEVALBUTEROL 1.25MG/0.5ML NEB INH PRN (22:24)
[2016-08-14 23:59] VITALS: BP 113/65; PULSE 110; TEMP 36.6; O2SAT 95
[2016-08-15] MEDS: PIPERACILL/TAZOBAC IV 4.5 GM in DEXTROSE 5% 100ML IV SCH ×2 (00:43→08:01)
[2016-08-15] MEDS: CLINDAMYCIN IV 600 MG in DEXTROSE 5% ADD-VANTAGE 50ML 50 ML IV SCH ×2 (03:06→10:59)
[2016-08-15 03:24] LABS: HEMATOCRIT 33.2 % (37-47); MEAN CORPUSCULAR HEMOGLOBIN 29.3 pg (25-34); MEAN CORPUSCULAR HGB CONC 35.2 g/dl (32-36); MEAN PLATELET VOLUME 9.3 fL (7.4-10.4); PLATELET COUNT 316 K/uL (130-400); WHITE BLOOD COUNT 28.35 K/uL (4.8-10.8)
[2016-08-15 03:41] LABS: BUN/CREATININE RATIO 12.5 (10-20); CALCIUM 8.2 mg/dl (8.5-10.1); CREATININE 0.62 mg/dl (0.60-1.20); MAGNESIUM 1.8 mg/dl (1.8-2.4); POTASSIUM 3.4 mmol/L (3.5-5.1)
[2016-08-15 04:00] VITALS: BP 103/51; PULSE 98; TEMP 36.3; O2SAT 96
[2016-08-15] MEDS: DiphenhydrAMINE HCL 50 MG/ML VIAL IV PRN ×2 (05:15→15:04)
[2016-08-15] MEDS: OXYCODONE HCL IR 5 MG TAB (IMMEDIATE RELEASE) PO PRN ×2 (05:16→12:13)
[2016-08-15] MEDS: ENOXAPARIN 120 MG/0.8 ML SYR SQ SCH ×2 (06:28→17:16)
[2016-08-15] MEDS: SODIUM CHLORIDE 0.9% 1000ML 1,000 ML IV SCH ×2 (06:45→15:04)
[2016-08-15 07:30] VITALS: BP 112/67; PULSE 89; TEMP 36.6; O2SAT 96
[2016-08-15] MEDS: PRENATAL VITAMIN TAB PO SCH (07:55)
[2016-08-15] MEDS: AZITHROMYCIN 250 MG TAB PO SCH (07:55)
[2016-08-15] MEDS: ACETAMINOPHEN 325 MG TAB PO PRN (07:57)
[2016-08-15] MEDS ORDERED: CEFTRIAXONE SOD INJ 1 GM in DEXTROSE 5% ADD-VANTAGE 50ML 50 ML IV SCH (08:00)
[2016-08-15] MEDS ORDERED: AZITHROMYCIN IV 500 MG in DEXTROSE 5% 250ML 250 ML IV SCH (10:00)
[2016-08-15 11:18] VITALS: BP 99/57; PULSE 88; TEMP 36.3; O2SAT 99
[2016-08-15] MEDS ORDERED: AZITHROMYCIN 250 MG TAB PO SCH (12:00)
[2016-08-15 15:09] VITALS: BP 107/67; PULSE 85; TEMP 36.6; O2SAT 98
--- NOTE | 2016-08-15 15:32 | Progress Note ---
Subjective Date of Service: Aug 15, 2016. Subjective Pt evaluation today including: conversation w/ patient, physical exam, lab review, review of studies, review of inpatient medication list Saw/examined the patient in room 101 +anxious, +chest pain hyperventilating during exam She feels the pain where she felt it on admission Problem List Medical Problems: (1) Second trimester Status: Acute Review of Systems Constitutional: + weakness Respiratory: + cough, + dyspnea at rest, + dyspnea on exertion, + shortness of breath, + sputum, No hemoptysis, No wheezing Cardiac: + chest pain, No edema, No palpitations Abdomen: No diarrhea, No nausea, No pain, No vomiting Medications Current Inpatient Medications Medications (Trade) Dose Ordered Sig/Rory Route Start Time Stop Time Status Last Admin Dose Admin Ioversol (Optiray 320) 125 ml UD PRN IV 08/14/16 12:15 08/18/16 12:14 Acetaminophen (Tylenol Tab) 650 mg Q4H PRN PO 08/14/16 13:30 09/13/16 13:29 08/15/16 07:57 650 MG Ondansetron HCl (Zofran Inj) 4 mg Q6H PRN IV 08/14/16 13:30 09/13/16 13:29 Prenat Multivit/ [place]/Iron/Folic Ac ( Vitamin Tab) 1 tab DAILY PO 08/15/16 09:00 09/14/16 08:59 08/15/16 07:55 1 TAB Oxycodone HCl 5 mg 5 mg Q6H PRN PO 08/14/16 14:00 08/28/16 13:59 08/15/16 12:13 5 MG Sodium Chloride (Nss 1000ml) 1,000 ml @ 125 mls/hr Q8H IV 08/14/16 14:45 09/13/16 14:44 08/15/16 15:04 125 MLS/HR Ipratropium [place] (Atrovent 0.02% 0.5MG/2.5ML Neb) 0.5 mg Q4H PRN INH 08/14/16 15:30 09/13/16 15:29 08/14/16 22:24 0.5 MG Levalbuterol (Xopenex 1.25MG/ 0.5ML Neb) 1.25 mg Q4H PRN INH 08/14/16 15:30 09/13/16 15:29 08/14/16 22:24 1.25 MG Enoxaparin Sodium (Lovenox Inj) 111 mg Q12@0600,1800 SQ 08/14/16 16:00 09/13/16 15:59 08/15/16 06:28 111 MG Dextromethorphan Polymer Complex (Delsym Susp) 30 mg Q8H PRN PO 08/14/16 15:45 09/13/16 15:44 Piperacillin Sod/ Tazobactam Sod (Consult) 1 ea UD PRN N/A 08/14/16 18:00 09/13/16 17:59 Clindamycin Phosphate 1 ea 1 ea UD PRN N/A 08/14/16 18:00 09/13/16 17:59 Clindamycin Phosphate/Dextrose (Cleocin Iv/ Dextrose Add-[place] 50ML) 54 ml @ 108 mls/hr Q8@02,10,18 IV 08/14/16 18:15 08/21/16 18:14 08/15/16 10:59 108 MLS/HR Diphenhydramine HCl (Benadryl Inj) 50 mg Q6H PRN IV 08/14/16 22:00 09/13/16 21:59 08/15/16 15:04 50 MG Azithromycin 250 mg 250 mg QAM PO 08/15/16 09:00 08/22/16 08:59 08/15/16 07:55 250 MG Piperacillin Sod/ Tazobactam Sod/ Dextrose (Zosyn Iv/D5 100ml) 115 ml @ 28.75 mls/ hr Q8H IV 08/15/16 16:00 08/21/16 18:14 Objective Vital Signs Date Time Temp Pulse Resp B/P Pulse Ox O2 Delivery O2 Flow Rate FiO2 08/15/16 15:09 36.6 85 20 107/67 98 1.0 08/15/16 11:20 Nasal Cannula 2.0 08/15/16 11:18 36.3 88 24 99/57 99 2.0 08/15/16 07:30 36.6 89 24 112/67 96 Nasal Cannula 2.0 08/15/16 07:30 Nasal Cannula 2.0 08/15/16 04:00 Room Air 08/15/16 04:00 36.3 98 26 103/51 96 Nasal Cannula 2.0 08/14/16 23:59 36.6 110 26 113/65 95 Nasal Cannula 2.0 08/14/16 23:59 Room Air 08/14/16 22:24 116 20 91 Room Air 08/14/16 20:00 Room Air 08/14/16 19:26 37.5 106 22 118/70 99 Room Air Physical Exam General Appearance: + moderate distress (secondary to anxiety and pain) Eyes: normal inspection ENT: hearing grossly normal Neck: supple Respiratory/Chest: no respiratory distress, no accessory muscle use, + decreased breath sounds Cardiovascular: + tachycardia Extremities: + swelling (+trace pedal edema) Neurologic/Psychiatric: alert, + pertinent finding (+anxious) Skin: normal color Laboratory Results Last 24 Hours Test 08/14/16 16:04 08/14/16 16:05 08/14/16 21:00 08/15/16 03:15 Lactic Acid Level 3.0 mmol/L 2.8 mmol/L 1.2 mmol/L Influenza Type A (RT-PCR) Neg for Influ A Influenza Type B (RT-PCR) Neg for Influ B White Blood Count 28.35 K/uL Red Blood Count 4.00 M/uL Hemoglobin 11.7 g/dL Hematocrit 33.2 % Mean Corpuscular Volume 83.0 fL Mean Corpuscular Hemoglobin 29.3 pg Mean Corpuscular Hemoglobin Concent 35.2 g/dl RDW Standard Deviation 41.7 fL RDW Coefficient of Variation 13.6 % Platelet Count 316 K/uL Mean Platelet Volume 9.3 fL Sodium Level 137 mmol/L Potassium Level 3.4 mmol/L Chloride Level 103 mmol/L Carbon Dioxide Level 23 mmol/L Anion Gap 11.0 mmol/L Blood Urea Nitrogen 8 mg/dl Creatinine 0.62 mg/dl Est Creatinine Clear Calc Drug Dose 169.9 ml/min Estimated GFR () 140.2 Estimated GFR (Non- 121.0 BUN/Creatinine Ratio 12.5 Random Glucose 109 mg/dl Calcium Level 8.2 mg/dl Magnesium Level 1.8 mg/dl Assessment and Plan This is a 25 week , 31 year old female with PMH of tobacco use disorder presents with worsening shortness of breath and found to have bilateral PEs and pneumonia Sepsis secondary to Pneumonia Chest CT obtained showing diffuse bilateral infiltrative changes b/l upper lobes presented with leukocytosis, lactic acidosis, tachycardia lactic acid < 2 persistent leukocytosis She was started on Zosyn and clindamycin at this point, I'll d/c clindamycin continue Zosyn for now, monitor CBC cut down IVFs and monitor breathing status She is very anxious and this is exacerbating the breathing Bilateral PE Chest CT shows several small, second/third order emboli risk factors: and smoking currently on Lovenox, which we will continue Shortness of Breath secondary to the pneumonia and bilateral pulmonary embolisms her anxiety is also making things worse continue to treat the above with antibiotics and Lovenox Benadryl for anxiety May need to add an anxiolytic if this persists Chest Pain this is most likely secondary to her PEs will need OB recommendations for further pain control echo is pending Hypokalemia recheck K and Mg in AM 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 Alvarez in ER; appreciate input Daily non stress tests FULL CODE
[2016-08-15] MEDS: PIPERACILL/TAZOBAC IV 3.375 GM in DEXTROSE 5% 100ML 100 ML IV SCH (16:17)
[2016-08-15 20:00] VITALS: BP 134/67; PULSE 91; TEMP 36.6; O2SAT 94
[2016-08-15] MEDS: OXYCODONE/ACETAMINOPHEN 5-325 TAB PO PRN (20:10)
[2016-08-15 23:48] VITALS: BP 116/67; PULSE 86; TEMP 36.3; O2SAT 100
[2016-08-16] VITALS (7 sets, daily range): BP systolic 106–113; BP diastolic 48–74; PULSE 74–85; TEMP 36.4–36.6; O2SAT 94–100
[2016-08-16] MEDS: PIPERACILL/TAZOBAC IV 3.375 GM in DEXTROSE 5% 100ML 100 ML IV SCH ×4 (00:47→23:59)
[2016-08-16] MEDS: OXYCODONE/ACETAMINOPHEN 5-325 TAB PO PRN ×5 (03:55→19:16)
[2016-08-16] MEDS: SODIUM CHLORIDE 0.9% 1000ML 1,000 ML IV SCH ×3 (05:00→15:19)
[2016-08-16 05:34] LABS: HEMATOCRIT 33.2 % (37-47); MEAN CELL VOLUME 85.8 fL (80-100); MEAN CORPUSCULAR HEMOGLOBIN 29.5 pg (25-34); MEAN CORPUSCULAR HGB CONC 34.3 g/dl (32-36); MEAN PLATELET VOLUME 9.7 fL (7.4-10.4); PLATELET COUNT 354 K/uL (130-400); RED BLOOD COUNT 3.87 M/uL (4.2-5.4); WHITE BLOOD COUNT 24.69 K/uL (4.8-10.8)
[2016-08-16 06:11] LABS: BUN/CREATININE RATIO 22.5 (10-20); CALCIUM 8.5 mg/dl (8.5-10.1); CREATININE 0.54 mg/dl (0.60-1.20); MAGNESIUM 2.1 mg/dl (1.8-2.4)
[2016-08-16] MEDS: ENOXAPARIN 120 MG/0.8 ML SYR SQ SCH ×2 (06:17→16:58)
[2016-08-16] MEDS: AZITHROMYCIN 250 MG TAB PO SCH (08:02)
[2016-08-16] MEDS: PRENATAL VITAMIN TAB PO SCH (08:15)
--- NOTE | 2016-08-16 09:01 | Progress Note ---
Internal Med Progress Note Date of Service: Aug 16, 2016. Provider Documentation: SUBJECTIVE: sitting on chair , has pillow against her chest -mentions having sharp chest pain with deep breath /cough mentions that 2 tab of Percocet helps to ease up the pain has cough . no hemoptysis no fever or chills appetite fair on 2 L 02 via nasal canula OBJECTIVE: Vital Signs-as noted below Exam: General-anxious young female, no distress noted Eyes-sclera non icteric ENT-NAD Neck-no thyromegaly Lungs-diminished, C/P pain with deep breath , cough initiated while taking deep breath /rales at base Heart-regular tachycardic , + 2-3 bilateral pitting edema, Abdomen-Gravid uterus Extremities-Lower ext : as noted ; no calf tenderness, no rash or deformity Neuro-no focal deficit Lab data as noted below. ASSESSMENT & PLAN: This is a 25 week , 31 year old female with PMH of tobacco use disorder presented with worsening shortness of breath and found to have bilateral PEs and pneumonia/sepsis Sepsis secondary to Pneumonia Chest CT obtained showing diffuse bilateral infiltrative changes b/l upper lobes presented with leukocytosis, lactic acidosis, tachycardia lactic acid < 2 symptom improved with IV hydration , broad spectrum Abx leukocytosis improved form 28K -> 24 K afebrile Lactic acid normalized with IV resuscitation/vitals remains stable She was started on Zosyn and clindamycin clindamycin D/carrie continue Zosyn /on Zithromax Blood culture , sputum culture ordered ID consult requested Bilateral PE Chest CT shows several small, second/third order emboli risk factors: and smoking ordered for lower ext USG to evaluate DVT ECHO ordered for to assess cardiac strain currently on therapeutic Lovenox, WOOL MERCHANT agreeable Coumadin contraindicated due to adverse effect will need anticoagulation clinic referral on discharge Defer to coag clinic and OB team for transition of Lovenox to Heparin prior to delivery pt is counselled for smoking cessation -agreeable Shortness of Breath/Chest pain secondary to the pneumonia and bilateral pulmonary embolisms continue to treat the above with antibiotics and Lovenox Benadryl PRN for anxiety on Percocet PRN for pain -pt is counselled to limit narcotic when able for benefit for the fetus avoid IV/PO NSAID -premature closure of ductus arteriosa in 3 rd trimester / worse effect Hypokalemia replaced recheck K and Mg in AM 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 Alvarez in ER; appreciate input Daily non stress tests FULL CODE DVT PROPHYLAXIS therapeutic Lovenox DISPOSITION to home when medically stable Medicine follow up with Dr Nuñez at [facility] will need anticoagulation clinic follow up Will need close OB follow up for high risk Vital Signs: Date Time Temp Pulse Resp B/P Pulse Ox O2 Delivery O2 Flow Rate FiO2 08/16/16 04:00 Nasal Cannula 2.0 08/16/16 04:00 85 22 112/74 100 Nasal Cannula 2.0 08/16/16 00:05 Nasal Cannula 2.0 08/15/16 23:48 36.3 86 20 116/67 100 Nasal Cannula 1.0 08/15/16 20:00 36.6 91 25 134/67 94 Room Air 08/15/16 20:00 Room Air 08/15/16 15:30 Nasal Cannula 2.0 08/15/16 15:09 36.6 85 20 107/67 98 1.0 08/15/16 11:20 Nasal Cannula 2.0 08/15/16 11:18 36.3 88 24 99/57 99 2.0 Lab Results: Results Past 24 Hours Test 08/16/16 05:00 Range/Units White Blood Count 24.69 4.8-10.8 K/uL Red Blood Count 3.87 4.2-5.4 M/uL Hemoglobin 11.4 12.0-16.0 g/dL Hematocrit 33.2 37-47 % Mean Corpuscular Volume 85.8 80-100 fL Mean Corpuscular Hemoglobin 29.5 25-34 pg Mean Corpuscular Hemoglobin Concent 34.3 32-36 g/dl RDW Standard Deviation 43.4 36.4-46.3 fL RDW Coefficient of Variation 13.8 11.5-14.5 % Platelet Count 354 130-400 K/uL Mean Platelet Volume 9.7 7.4-10.4 fL Sodium Level 138 136-145 mmol/L Potassium Level 3.0 3.5-5.1 mmol/L Chloride Level 104 98-107 mmol/L Carbon Dioxide Level 25 21-32 mmol/L Anion Gap 9.0 3-11 mmol/L Blood Urea Nitrogen 12 7-18 mg/dl Creatinine 0.54 0.60-1.20 mg/dl Est Creatinine Clear Calc Drug Dose 195.1 ml/min Estimated GFR () 146.8 Estimated GFR (Non- 126.6 BUN/Creatinine Ratio 22.5 10-20 Random Glucose 59 70-99 mg/dl Calcium Level 8.5 8.5-10.1 mg/dl Magnesium Level 2.1 1.8-2.4 mg/dl
--- NOTE | 2016-08-16 09:58 | Medical Consult ---
Consultation Date of Consultation: Aug 16, 2016. Attending Physician: Deb Hager M.D. Reason for Consultation: Sepsis, pneumonia History of Present Illness 31-year-old female, 26 weeks , otherwise in good health, long-time smoking history, who was well until approximately 1 week prior to admission when she developed symptoms of an upper respiratory tract infection with cough and greenish sputum. She has are primary care physician who treated her with an inhaler and tapering prednisone course, the patient developed increasing temperature to over 102 degrees associated with chills, chest pain, and persistent cough. She came to the emergency department were CT scan of the chest, read by me, revealed evidence of pulmonary emboli as well as bilateral infiltrative changes consistent with pneumonia. She currently is being treated with azithromycin and Zosyn. Blood cultures have been no growth to date, sputum studies are pending. Patient has 2 young children with respiratory tract infections, 1 possibly also with pleuritic chest pain. No other significant travel or exposure history. Has had no significant problems with her . Past Medical/Surgical History Medical Problems: (1) Second trimester Status: Acute Medical Problems: (1) Depression (2) Pneumonia (3) Pulmonary embolism Surgical Problems: (1) S/P section (2) S/P tonsillectomy and adenoidectomy Family History Endometriosis Social History Smoking Status: Current Every Day Smoker (1/2 ppd) Alcohol Use: none Drug Use: none Marital Status: Housing Status: lives with family Occupation Status: unemployed Allergies Coded Allergies: No Known Allergies (Unverified , NONE, 06/02/14) Current Inpatient Medications Current Inpatient Medications Medications (Trade) Dose Ordered Sig/Rory Route Start Time Stop Time Status Last Admin Dose Admin Ioversol (Optiray 320) 125 ml UD PRN IV 08/14/16 12:15 08/18/16 12:14 Acetaminophen (Tylenol Tab) 650 mg Q4H PRN PO 08/14/16 13:30 09/13/16 13:29 08/15/16 07:57 650 MG Ondansetron HCl (Zofran Inj) 4 mg Q6H PRN IV 08/14/16 13:30 09/13/16 13:29 Prenat Multivit/ [place]/Iron/Folic Ac 1 tab 1 tab DAILY PO 08/15/16 09:00 09/14/16 08:59 3/21/17 08:15 1 TAB Sodium Chloride (Nss 1000ml) 1,000 ml @ 75 mls/hr [id number] IV 08/14/16 14:45 08/16/16 05:00 80 MLS/HR Ipratropium [place] (Atrovent 0.02% 0.5MG/2.5ML Neb) 0.5 mg Q4H PRN INH 08/14/16 15:30 09/13/16 15:29 08/14/16 22:24 0.5 MG Levalbuterol (Xopenex 1.25MG/ 0.5ML Neb) 1.25 mg Q4H PRN INH 08/14/16 15:30 09/13/16 15:29 08/14/16 22:24 1.25 MG Enoxaparin Sodium (Lovenox Inj) 111 mg Q12@0600,1800 SQ 08/14/16 16:00 09/13/16 15:59 08/16/16 06:17 111 MG Dextromethorphan Polymer Complex (Delsym Susp) 30 mg Q8H PRN PO 08/14/16 15:45 09/13/16 15:44 Piperacillin Sod/ Tazobactam Sod (Consult) 1 ea UD PRN N/A 08/14/16 18:00 09/13/16 17:59 Diphenhydramine HCl (Benadryl Inj) 50 mg Q6H PRN IV 08/14/16 22:00 09/13/16 21:59 08/15/16 15:04 50 MG Azithromycin 250 mg 250 mg QAM PO 08/15/16 09:00 08/22/16 08:59 08/16/16 08:02 250 MG Piperacillin Sod/ Tazobactam Sod/ Dextrose (Zosyn Iv/D5 100ml) 115 ml @ 28.75 mls/ hr Q8H IV 08/15/16 16:00 08/21/16 18:14 08/16/16 08:02 28.75 MLS/HR Oxycodone/ Acetaminophen (Percocet 5-325mg Tab) pain not relieved by tyle... Q4H PRN PO 08/15/16 20:00 08/29/16 19:59 08/16/16 08:10 2 TAB Potassium Chloride (Klor-Con M10) 40 meq NOW STAT PO 08/16/16 09:02 08/16/16 09:03 UNV Review of Systems Constitutional: + chills, + fatigue, + fever, + weakness Eyes: No problem reported ENT: No trouble swallowing Respiratory: + cough, + shortness of breath, + sputum, No hemoptysis Cardiovascular: + chest pain Abdomen: No problem reported Musculoskeletal: No problem reported Genitourinary - Female: + Neurologic: No problem reported Psychiatric: No problem reported Endocrine: No problem reported Hematologic / Lymphatic: No problem reported Integumentary: No problem reported Allergic / Immunologic: No problem reported Physical Exam Date Time Temp Pulse Resp B/P Pulse Ox O2 Delivery O2 Flow Rate FiO2 08/16/16 07:30 Nasal Cannula 2.0 08/16/16 07:30 36.4 80 22 106/56 95 Nasal Cannula 2.0 08/16/16 04:00 Nasal Cannula 2.0 08/16/16 04:00 85 22 112/74 100 Nasal Cannula 2.0 08/16/16 00:05 Nasal Cannula 2.0 08/15/16 23:48 36.3 86 20 116/67 100 Nasal Cannula 1.0 08/15/16 20:00 36.6 91 25 134/67 94 Room Air 08/15/16 20:00 Room Air 08/15/16 15:30 Nasal Cannula 2.0 08/15/16 15:09 36.6 85 20 107/67 98 1.0 08/15/16 11:20 Nasal Cannula 2.0 08/15/16 11:18 36.3 88 24 99/57 99 2.0 General Appearance: WD/WN, + mild distress Head: normocephalic, atraumatic Eyes: normal inspection, EOMI, sclerae normal ENT: normal ENT inspection, hearing grossly normal, pharynx normal Neck: supple, no adenopathy, thyroid normal, trachea midline Respiratory/Chest: + rales, + rhonchi Cardiovascular: regular rate, rhythm, no gallop, no murmur Abdomen/GI: normal bowel sounds, non tender, soft, no organomegaly Back: normal inspection, no CVA tenderness Extremities/Musculoskelatal: normal inspection, no calf tenderness, non-tender Neurologic/Psych: alert, oriented x 3 Skin: normal color, warm/dry, no rash Lymphatic: no adenopathy Laboratory Results RUN DATE: 08/16/16 [facility] LAB PAGE 1 RUN TIME: 726 Specimen Inquiry PATIENT: ZEYAD MORA [facility] [place] U # : [id number] AGE/SX: 31/F ROOM: E101 REG : 08/14/[address]: Sarah Hensley DO : 1985 BED: 1 DIS : STATUS: ADM IN TLOC: SPEC #: [id number] VERO: 08/14/16-1402 STATUS: RES REQ #: [id number] RECD: 08/14/16-[address]: Shoshana Croft PA-C SOURCE: BLOOD ENTR: 08/14/16-[address]: Eris Alvarez DO [facility]: Rita Beaulieu M.D. No Doctor, Assigned ORDERED: BLOOD CULTURE Procedure Result Verified Site BLD CULT Preliminary 08/16/16 NO GROWTH TO DATE. Last 24 Hours Test 08/16/16 05:00 08/16/16 09:32 White Blood Count 24.69 K/uL Red Blood Count 3.87 M/uL Hemoglobin 11.4 g/dL Hematocrit 33.2 % Mean Corpuscular Volume 85.8 fL Mean Corpuscular Hemoglobin 29.5 pg Mean Corpuscular Hemoglobin Concent 34.3 g/dl RDW Standard Deviation 43.4 fL RDW Coefficient of Variation 13.8 % Platelet Count 354 K/uL Mean Platelet Volume 9.7 fL Sodium Level 138 mmol/L Potassium Level 3.0 mmol/L Chloride Level 104 mmol/L Carbon Dioxide Level 25 mmol/L Anion Gap 9.0 mmol/L Blood Urea Nitrogen 12 mg/dl Creatinine 0.54 mg/dl Est Creatinine Clear Calc Drug Dose 195.1 ml/min Estimated GFR () 146.8 Estimated GFR (Non- 126.6 BUN/Creatinine Ratio 22.5 Random Glucose 59 mg/dl Calcium Level 8.5 mg/dl Magnesium Level 2.1 mg/dl CHEST CTA for PULMONARY ARTERIES CT DOSE: 450.49 mGy.cm HISTORY: Chest pain dyspnea TECHNIQUE: Multiaxial CT images of the chest were performed following the intravenous administration of contrast to evaluate the pulmonary arteries. Maximal intensity projection images were also obtained. COMPARISON STUDY: None. FINDINGS: Study is technically poor due to patient continued aspiration during the study. There is no evidence for a central or main pulmonary embolus. There are findings suspect for second order emboli involving the right as well as left lower lobe pulmonary arterial distributions. Within the left lower lobe this is best seen on transaxial image 58 of series 107. Small circular filling defects are identified in the right lower lobe best seen transaxial image 42. Study again is negative for central or main pulmonary embolus. There are consolidative infiltrative changes within the left base as well as right middle lobe regions. Rounded patchy parenchymal infiltrative changes are identified in the upper lung regions bilaterally. All the study is technically positive for pulmonary emboli, there appear to be potentially 2 separate processes occurring. The parenchymal infiltrative changes do not appear to be suspect for pulmonary infarct. Thoracic aorta is normal in course and caliber. There is no significant hilar or mediastinal dana change. IMPRESSION: 1. Difficult study to interpret. 2. No evidence for a main or central pulmonary embolus. 3. Several small second-order third or emboli primarily involving the left and to a lesser extent right lower lobe distributions. 4. Diffuse bilateral consolidative infiltrative changes in the lower lung regions bilaterally with additional round atelectatic and/or infiltrative changes involving the upper lungs bilaterally. 5. This study does not appear to support the possibility that all findings are secondary to pulmonary emboli,. 6. Possibly of a superimposed multifocal infiltrative/ inflammatory/pulmonary edematous pattern must be a consideration. Electronically signed by: Wicho Ambriz M.D. 08/14/2016 12:31 PM Dictated Date/Time: 08/14/2016 12:15 PM The status of this report is Signed. Draft = Not yet reviewed or approved by Radiologist. Signed = Reviewed and approved by Radiologist. <AttendingPhy></AttendingPhy> <FamilyPhy>No Doctor, Assigned</FamilyPhy> < PrimaryPhy>No Doctor, Assigned</PrimaryPhy> <UnitNumber Assessment & Plan 31 yo female with what appears to be pneumonia as well as multiple PEs. Most likely CABP associated pathogens, interesting that 2 children with somewhat similar symptoms. For now, pending sputum and other studies, would continue current treatment with Zosyn and azithromycin. Have ordered procalcitonin. Consider studies for Legionella, Mycoplasma, and Chlamydophila. Will follow.
[2016-08-16] MEDS ORDERED: POTASSIUM CHLORIDE 10 MEQ TABCR PO ONE (10:00)
--- NOTE | 2016-08-16 17:01 | DIAGNOSTIC IMAGING REPORT ---
ULTRASOUND VENOUS DOPPLER LWR EXT BILA CLINICAL HISTORY: Pulmonary embolism. . COMPARISON STUDY: No previous studies for comparison. FINDINGS: Real-time and color flow Doppler imaging were performed. Flow was seen within the femoral, popliteal and calf veins with no intraluminal thrombus demonstrated. The saphenous vein is patent. IMPRESSION: No evidence of lower extremity DVT. Electronically signed by: Ezio Wylie M.D. 08/16/2016 5:00 PM Dictated Date/Time: 08/16/2016 4:59 PM
[2016-08-16] MEDS: DiphenhydrAMINE HCL 50 MG/ML VIAL IV PRN (17:18)
[2016-08-16] MEDS: ACETAMINOPHEN 325 MG TAB PO PRN (17:18)
[2016-08-16] MEDS: DEXTROMETHORPHAN POLYMR COMPLX 30 MG/5 ML UDP PO PRN (21:38)
[2016-08-17] VITALS: BP 109/69; PULSE 90; TEMP 36.6; O2SAT 93
[2016-08-17] MEDS: DiphenhydrAMINE HCL 50 MG/ML VIAL IV PRN ×2 (00:25→15:33)
[2016-08-17] MEDS: MoRPHine SULFATE 4 MG/ML 1 ML CARP\\VIAL IV PRN ×3 (01:05→18:11)
[2016-08-17] MEDS: OXYCODONE/ACETAMINOPHEN 5-325 TAB PO PRN ×4 (04:45→19:22)
[2016-08-17] MEDS: ENOXAPARIN 120 MG/0.8 ML SYR SQ SCH ×2 (05:38→18:02)
[2016-08-17 07:28] LABS: URINE APPEARANCE CLEAR (CLEAR); URINE COLOR DK YELLOW; URINE EPITHELIAL CELL AUTO >30 /lpf (0-5); URINE NITRITE NEG (NEG); URINE SPECIFIC GRAVITY 1.039 (1.000-1.030); UROBILINOGEN POS (NEG); ZZUR CULT IF INDIC CLEAN CATCH YES
[2016-08-17 07:31] LABS: HEMATOCRIT 33.7 % (37-47); MEAN CELL VOLUME 84.9 fL (80-100); MEAN CORPUSCULAR HGB CONC 34.1 g/dl (32-36); MEAN PLATELET VOLUME 9.5 fL (7.4-10.4); PLATELET COUNT 333 K/uL (130-400); RED BLOOD COUNT 3.97 M/uL (4.2-5.4); WHITE BLOOD COUNT 19.42 K/uL (4.8-10.8)
[2016-08-17 07:33] LABS: MANUAL MICROSCOPIC REQUIRED? NO; REVIEW REQ? YES; URINE BILIRUBIN 1+ (NEG)
[2016-08-17] MEDS: PIPERACILL/TAZOBAC IV 3.375 GM in DEXTROSE 5% 100ML 100 ML IV SCH ×2 (07:52→16:07)
[2016-08-17 08:00] VITALS: BP 135/77; PULSE 75; TEMP 36.3; O2SAT 94
[2016-08-17 08:01] LABS: BUN/CREATININE RATIO 15.8 (10-20); CALCIUM 8.4 mg/dl (8.5-10.1); CREATININE 0.57 mg/dl (0.60-1.20); MAGNESIUM 2.2 mg/dl (1.8-2.4); POTASSIUM 3.3 mmol/L (3.5-5.1)
[2016-08-17] MEDS: PRENATAL VITAMIN TAB PO SCH (08:46)
[2016-08-17] MEDS: AZITHROMYCIN 250 MG TAB PO SCH (08:46)
[2016-08-17] MEDS: DEXTROMETHORPHAN POLYMR COMPLX 30 MG/5 ML UDP PO PRN ×2 (10:17→20:17)
[2016-08-17 12:00] VITALS: BP 119/79; PULSE 76; TEMP 36.2; O2SAT 94
[2016-08-17 15:40] VITALS: BP 137/80; PULSE 76; TEMP 36.6; O2SAT 97
[2016-08-17 20:00] VITALS: BP 114/72; PULSE 91; TEMP 37.2; O2SAT 93
--- NOTE | 2016-08-17 20:05 | Progress Note ---
Internal Med Progress Note Date of Service: Aug 17, 2016. Provider Documentation: SUBJECTIVE: complains of ongoing sharp chest pain -going to her back , mostly on right side IV morphine does not help much taking Percocet -helps for 1-2 hrs very tearful worried about her baby being affected with all the pain meds -but still can not tolerate the pain having non productive cough , making her chest pain worse OBJECTIVE: Vital Signs-as noted below Exam: General-anxious young female, in tears for chest pain Eyes-sclera non icteric ENT-NAD Neck-no thyromegaly Lungs-diminished, no wheeze or rales, reproducible chest wall tenderness on rt lower back Heart-regular , + 2-3 bilateral pitting edema, Abdomen-Gravid uterus Extremities-Lower ext : as noted ; no calf tenderness, no rash or deformity Neuro-no focal deficit Lab data as noted below. ASSESSMENT & PLAN: This is a 25 week , 31 year old female with PMH of tobacco use disorder presented with worsening shortness of breath and found to have bilateral PEs and pneumonia/sepsis Sepsis secondary to Pneumonia Chest CT obtained showing diffuse bilateral infiltrative changes b/l upper lobes presented with leukocytosis, lactic acidosis, tachycardia lactic acid < 2 symptom improved with IV hydration , broad spectrum Abx leukocytosis improved form 28K -> 24 K -> 19K afebrile Lactic acid normalized with IV resuscitation/vitals remains stable Abx : on IV Zosyn Zithromax Blood culture , sputum culture ordered -negative growth ID consult requested -appreciate input form Dr Moore ordered for Legionella, Mycoplasma -Ag assay on Zithromax -will provide adequate coverage for atypical micro organisms Community acquired pneumonia will cont IV Abx till leukocytosis improved Bilateral PE Chest CT shows several small, second/third order emboli risk factors: and smoking lower ext USG negative for DVT ECHO ordered for to assess cardiac strain currently on therapeutic Lovenox, QA SPECIALIST agreeable Coumadin contraindicated due to adverse effect will need anticoagulation clinic referral on discharge Defer to coag clinic and OB team for transition of Lovenox to Heparin prior to delivery pt is counselled for smoking cessation -agreeable Shortness of Breath/Chest pain secondary to the pneumonia and bilateral pulmonary embolisms continue to treat the above with antibiotics and Lovenox Benadryl PRN for anxiety on Percocet PRN for pain -pt is counselled to limit narcotic when able for benefit for the fetus avoid IV/PO NSAID -premature closure of ductus arteriosa in 3 rd trimester / worse effect IV Morphine D/carrie -as pt says it is not affective for pain 0.5 mg IV Dilaudid PRN q 4hrs pt is counselled repeatedly the effect for narcotic pain medication on fetus ordered for Lidoderm patch /heating pad -for possible muscle spasm / reproducible pain on lower back Hypokalemia replaced Second Trimester being followed by Supervisor [employer]aking FULL CODE DVT PROPHYLAXIS therapeutic Lovenox DISPOSITION to home when medically stable Medicine follow up with Dr Nuñez at [facility] will need anticoagulation clinic follow up Will need close OB follow up for high risk Vital Signs: Date Time Temp Pulse Resp B/P Pulse Ox O2 Delivery O2 Flow Rate FiO2 08/17/16 20:00 37.2 91 48 114/72 93 Nasal Cannula 1.5 08/17/16 20:00 93 Nasal Cannula 2.0 08/17/16 16:30 40 08/17/16 15:40 36.6 76 22 137/80 97 Nasal Cannula 2.0 08/17/16 15:30 2.0 08/17/16 15:30 36 08/17/16 12:00 36.2 76 16 119/79 94 Room Air 08/17/16 08:00 36.3 75 22 135/77 94 Room Air 08/17/16 08:00 Nasal Cannula 2.0 08/17/16 00:00 Room Air 08/17/16 00:00 36.6 90 28 109/69 93 Room Air Lab Results: Results Past 24 Hours Test 08/17/16 06:30 08/17/16 07:17 Range/Units Urine Color DK YELLOW Urine Appearance CLEAR CLEAR Urine pH 6.0 4.5-7.5 Urine Specific [place] 1.039 1.000-1.030 Urine Protein NEG NEG Urine Glucose (UA) NEG NEG Urine Ketones TRACE NEG Urine Occult Blood NEG NEG Urine Nitrite NEG NEG Urine Bilirubin 1+ NEG Urine Urobilinogen POS NEG Urine Leukocyte Esterase SMALL NEG Urine WBC (Auto) 1-5 0-5 /hpf Urine RBC (Auto) 0-4 0-4 /hpf Urine Hyaline Casts (Auto) 0 0-5 /lpf Urine Epithelial Cells (Auto) >30 0-5 /lpf Urine Bacteria (Auto) NEG NEG Urine Yeast (Auto) BUD W/ HYPHAE NONE PRSENT White Blood Count 19.42 4.8-10.8 K/uL Red Blood Count 3.97 4.2-5.4 M/uL Hemoglobin 11.5 12.0-16.0 g/dL Hematocrit 33.7 37-47 % Mean Corpuscular Volume 84.9 80-100 fL Mean Corpuscular Hemoglobin 29.0 25-34 pg Mean Corpuscular Hemoglobin Concent 34.1 32-36 g/dl RDW Standard Deviation 42.5 36.4-46.3 fL RDW Coefficient of Variation 13.6 11.5-14.5 % Platelet Count 333 130-400 K/uL Mean Platelet Volume 9.5 7.4-10.4 fL Sodium Level 136 136-145 mmol/L Potassium Level 3.3 3.5-5.1 mmol/L Chloride Level 102 98-107 mmol/L Carbon Dioxide Level 25 21-32 mmol/L Anion Gap 9.0 3-11 mmol/L Blood Urea Nitrogen 9 7-18 mg/dl Creatinine 0.57 0.60-1.20 mg/dl Est Creatinine Clear Calc Drug Dose 184.8 ml/min Estimated GFR () 144.2 Estimated GFR (Non- 124.4 BUN/Creatinine Ratio 15.8 10-20 Random Glucose 86 70-99 mg/dl Calcium Level 8.4 8.5-10.1 mg/dl Magnesium Level 2.2 1.8-2.4 mg/dl Microbiology Results 08/17/16 Urine Culture, Received Pending
[2016-08-17] MEDS: LIDODERM (LIDOCAINE) PATCH 5% TD SCH (21:38)
[2016-08-17] MEDS: HYDROmorphone INJ 0.5 MG/0.5 ML SYR IV PRN (21:38)
[2016-08-17 23:30] VITALS: BP 114/72; PULSE 82; TEMP 36.4; O2SAT 99
[2016-08-18] VITALS (7 sets, daily range): BP systolic 103–122; BP diastolic 60–75; PULSE 80–88; TEMP 36.4–36.6; O2SAT 92–96
[2016-08-18] MEDS: OXYCODONE/ACETAMINOPHEN 5-325 TAB PO PRN ×5 (00:04→21:41)
[2016-08-18] MEDS: PIPERACILL/TAZOBAC IV 3.375 GM in DEXTROSE 5% 100ML 100 ML IV SCH ×3 (01:04→16:19)
[2016-08-18] MEDS: HYDROmorphone INJ 0.5 MG/0.5 ML SYR IV PRN ×4 (04:52→20:18)
[2016-08-18] MEDS: ENOXAPARIN 120 MG/0.8 ML SYR SQ SCH ×2 (06:11→18:19)
[2016-08-18] MEDS: DEXTROMETHORPHAN POLYMR COMPLX 30 MG/5 ML UDP PO PRN (06:48)
[2016-08-18 07:01] LABS: HEMATOCRIT 33.3 % (37-47); MEAN CELL VOLUME 84.3 fL (80-100); MEAN CORPUSCULAR HEMOGLOBIN 29.1 pg (25-34); MEAN CORPUSCULAR HGB CONC 34.5 g/dl (32-36); MEAN PLATELET VOLUME 9.4 fL (7.4-10.4); PLATELET COUNT 342 K/uL (130-400); RED BLOOD COUNT 3.95 M/uL (4.2-5.4); WHITE BLOOD COUNT 21.65 K/uL (4.8-10.8)
[2016-08-18 07:31] LABS: BLOOD UREA NITROGEN 8 mg/dl (7-18); BUN/CREATININE RATIO 21.2 (10-20); CALCIUM 8.3 mg/dl (8.5-10.1); CARBON DIOXIDE 25 mmol/L (21-32); CHLORIDE 102 mmol/L (98-107); CREATININE 0.37 mg/dl (0.60-1.20); GLUCOSE 72 mg/dl (70-99); POTASSIUM 3.4 mmol/L (3.5-5.1); SODIUM 137 mmol/L (136-145)
[2016-08-18] MEDS: PRENATAL VITAMIN TAB PO SCH (08:18)
[2016-08-18] MEDS: AZITHROMYCIN 250 MG TAB PO SCH (09:00)
[2016-08-18] MEDS ORDERED: POTASSIUM CHLORIDE 10 MEQ TABCR PO STA (19:47)
--- NOTE | 2016-08-18 19:53 | Progress Note ---
Internal Med Progress Note Date of Service: Aug 18, 2016. Provider Documentation: SUBJECTIVE: chest pain has improved today hurts when taking deep breath or with cough minimum SOB no hypoxia , in room air back pain bothering her more , using heating pad , Lidoderm patch OBJECTIVE: Vital Signs-as noted below Exam: General-anxious young female, no apparent distress Eyes-sclera non icteric ENT-NAD Neck-no thyromegaly Lungs-diminished, no wheeze or rales, reproducible chest wall tenderness on rt lower back Heart-regular , + 2-3 bilateral pitting edema, Abdomen-Gravid uterus Extremities-Lower ext : as noted ; no calf tenderness, no rash or deformity Neuro-no focal deficit Lab data as noted below. ASSESSMENT & PLAN: This is a 25 week , 31 year old female with PMH of tobacco use disorder presented with worsening shortness of breath and found to have bilateral PEs and pneumonia/sepsis Sepsis secondary to Pneumonia Chest CT obtained showing diffuse bilateral infiltrative changes b/l upper lobes presented with leukocytosis, lactic acidosis, tachycardia lactic acid < 2 symptom improved with IV hydration , broad spectrum Abx leukocytosis persists form 28K -> 24 K -> 19K -> 21 K afebrile Lactic acid normalized with IV resuscitation/vitals remains stable Abx : on IV Zosyn Zithromax Blood culture , sputum culture ordered -negative growth ID consult requested -appreciate input form Dr Moore ordered for Legionella, Mycoplasma -Ag assay -report pending on Zithromax -will provide adequate coverage for atypical micro organisms Community acquired pneumonia will cont IV Abx till leukocytosis improved ordered for C diff toxin assay for persistent leukocytosis ( pt reports one episode of loose stool /on broad spectrum ABx ) Bilateral PE Chest CT shows several small, second/third order emboli risk factors: and smoking lower ext USG negative for DVT ECHO ordered for to assess cardiac strain currently on therapeutic Lovenox, 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 Coumadin contraindicated due to adverse effect will need anticoagulation clinic referral on discharge Defer to coag clinic and OB team for transition of Lovenox to Heparin prior to delivery pt is counselled for smoking cessation -agreeable Shortness of Breath/Chest pain symptom improved secondary to the pneumonia and bilateral pulmonary embolisms continue to treat the above with antibiotics and Lovenox Benadryl PRN for anxiety on Percocet PRN for pain -pt is counselled to limit narcotic when able for benefit for the fetus avoid IV/PO NSAID -premature closure of ductus arteriosa in 3 rd trimester / worse effect IV Morphine D/carrie -as pt says it is not affective for pain 0.5 mg IV Dilaudid PRN q 4hrs pt is counselled repeatedly the effect for narcotic pain medication on fetus ordered for Lidoderm patch /heating pad -for possible muscle spasm / reproducible pain on lower back Hypokalemia due to diarrhea replaced check K /mg level in AM Second Trimester being followed by [employer] FULL CODE DVT PROPHYLAXIS therapeutic Lovenox DISPOSITION to home when medically stable Medicine follow up with Dr Nuñez at [facility] will need anticoagulation clinic follow up Will need close OB follow up for high risk Vital Signs: Date Time Temp Pulse Resp B/P Pulse Ox O2 Delivery O2 Flow Rate FiO2 08/18/16 16:00 93 Room Air 08/18/16 16:00 36.6 80 32 119/60 93 Room Air 0.0 08/18/16 08:45 94 Nasal Cannula 2.0 Humidified Air 08/18/16 08:45 36.4 84 34 109/71 94 Nasal Cannula 2.0 08/18/16 04:30 36.4 85 26 103/69 93 Room Air 08/18/16 00:05 93 Nasal Cannula 2.0 08/17/16 23:30 36.4 82 30 114/72 99 Nasal Cannula 2.0 08/17/16 20:00 37.2 91 48 114/72 93 Nasal Cannula 1.5 08/17/16 20:00 93 Nasal Cannula 2.0 Lab Results: Results Past 24 Hours Test 08/18/16 06:45 08/18/16 11:20 Range/Units White Blood Count 21.65 4.8-10.8 K/uL Red Blood Count 3.95 4.2-5.4 M/uL Hemoglobin 11.5 12.0-16.0 g/dL Hematocrit 33.3 37-47 % Mean Corpuscular Volume 84.3 80-100 fL Mean Corpuscular Hemoglobin 29.1 25-34 pg Mean Corpuscular Hemoglobin Concent 34.5 32-36 g/dl RDW Standard Deviation 42.1 36.4-46.3 fL RDW Coefficient of Variation 13.5 11.5-14.5 % Platelet Count 342 130-400 K/uL Mean Platelet Volume 9.4 7.4-10.4 fL Sodium Level 137 136-145 mmol/L Potassium Level 3.4 3.5-5.1 mmol/L Chloride Level 102 98-107 mmol/L Carbon Dioxide Level 25 21-32 mmol/L Anion Gap 10.0 3-11 mmol/L Blood Urea Nitrogen 8 7-18 mg/dl Creatinine 0.37 0.60-1.20 mg/dl Est Creatinine Clear Calc Drug Dose 284.7 ml/min Estimated GFR () > 150.0 Estimated GFR (Non- 143.4 BUN/Creatinine Ratio 21.2 10-20 Random Glucose 72 70-99 mg/dl Calcium Level 8.3 8.5-10.1 mg/dl Magnesium Level 2.0 1.8-2.4 mg/dl
[2016-08-18] MEDS ORDERED: DOCUSATE SODIUM 100 MG CAP PO PRN (20:00)
[2016-08-18] MEDS: LIDODERM (LIDOCAINE) PATCH 5% TD SCH (20:20)
[2016-08-18] MEDS: IPRATROPIUM BROMIDE NEB SOLN 0.02% 2.5 ML VIAL INH PRN (21:15)
[2016-08-18] MEDS: LEVALBUTEROL 1.25MG/0.5ML NEB INH PRN (21:15)
[2016-08-18] MEDS: DiphenhydrAMINE HCL 50 MG/ML VIAL IV PRN (21:48)
[2016-08-19] VITALS (12 sets, daily range): BP systolic 108–133; BP diastolic 67–85; PULSE 82–100; TEMP 36.7–37.3; O2SAT 94–97
[2016-08-19] MEDS: PIPERACILL/TAZOBAC IV 3.375 GM in DEXTROSE 5% 100ML 100 ML IV SCH ×3 (00:17→16:20)
[2016-08-19] MEDS ORDERED: COUGH DROP (SUGAR FREE) LOZ 24 LOZ/1 BOX ONE (00:23)
[2016-08-19] MEDS: HYDROmorphone INJ 0.5 MG/0.5 ML SYR IV PRN ×3 (00:28→12:12)
[2016-08-19] MEDS: OXYCODONE/ACETAMINOPHEN 5-325 TAB PO PRN ×4 (03:39→21:05)
[2016-08-19] MEDS ORDERED: HYDROmorphone INJ 1 MG/ML SYR ONE (04:08)
[2016-08-19] MEDS ORDERED: HYDROmorphone INJ 1 MG/ML SYR IV STA (04:11)
[2016-08-19] MEDS: IPRATROPIUM BROMIDE NEB SOLN 0.02% 2.5 ML VIAL INH PRN ×3 (04:14→14:23)
[2016-08-19] MEDS: LEVALBUTEROL 1.25MG/0.5ML NEB INH PRN ×3 (04:14→14:23)
[2016-08-19] MEDS: ENOXAPARIN 120 MG/0.8 ML SYR SQ SCH ×2 (06:21→18:05)
[2016-08-19 07:44] LABS: BLOOD UREA NITROGEN 6 mg/dl (7-18); CALCIUM 8.3 mg/dl (8.5-10.1); CARBON DIOXIDE 25 mmol/L (21-32); CHLORIDE 102 mmol/L (98-107); CREATININE 0.42 mg/dl (0.60-1.20); GLUCOSE 80 mg/dl (70-99); MAGNESIUM 2.1 mg/dl (1.8-2.4); POTASSIUM 3.4 mmol/L (3.5-5.1); SODIUM 136 mmol/L (136-145)
[2016-08-19 08:14] LABS: MEAN CELL VOLUME 83.3 fL (80-100); MEAN CORPUSCULAR HEMOGLOBIN 28.5 pg (25-34); MEAN CORPUSCULAR HGB CONC 34.2 g/dl (32-36); MEAN PLATELET VOLUME 9.5 fL (7.4-10.4); PLATELET COUNT 345 K/uL (130-400); RED BLOOD COUNT 3.96 M/uL (4.2-5.4); WHITE BLOOD COUNT 32.59 K/uL (4.8-10.8)
[2016-08-19] MEDS: AZITHROMYCIN 250 MG TAB PO SCH (08:15)
[2016-08-19] MEDS: PRENATAL VITAMIN TAB PO SCH (09:34)
[2016-08-19] MEDS ORDERED: POTASSIUM CHLORIDE 10 MEQ TABCR PO ONE (10:45)
--- NOTE | 2016-08-19 12:04 | Discharge Instructions ---
Discharge Instructions Date of Service Aug 19, 2016. Admission Reason for Admission: Pneumonia, Pulmonary Embolism Discharge Discharge Diagnosis / Problem: SEPSIS /PNEUMONIA /BILATERAL PULMONARY EMBOLISM /3RD TRIMESTER Discharge Goals Goal(s): Improve disease control, Diagnostic testing, Therapeutic intervention Activity Recommendations Activity Limitations: as noted below (bed rest ) . Instructions / Follow-Up Instructions / Follow-Up TRANSFER TO ICU IN [facility] Current Hospital Diet Patient's current hospital diet: Regular Diet Discharge Diet Recommended Diet: Regular Diet Pending Studies Studies pending at discharge: no Medical Emergencies . Who to Call and When: Medical Emergencies: If at any time you feel your situation is an emergency, please call 911 immediately. . Non-Emergent Contact Non-Emergency issues call your: Primary Care Provider . . "Provider Documentation" section prepared by Deb Hager. VTE Core Measure Inpt VTE Proph given/why not?: Enoxaparin (Lovenox)SQ
--- NOTE | 2016-08-19 13:06 | ECHOCARDIOGRAM REPORT ---
*NOTICE TO RECEIVING REPUBLICAN AGENCY This information is strictly Confidential and protected under [place] law. [place] law prohibits you from making any further disclosure of this information unless further disclosure is expressly permitted by the written consent of the person to whom it pertains or is authorized by law. A general authorization for the release of medical or other information is not sufficient for this purpose. Hospital accepts no responsibility if the information is made available to any other person, INCLUDING THE PATIENT. Interpretation Summary * Name: ZEYAD MORA Study Date: 08/18/2016 03:31 PM BP: 109/71 mmHg * Patient Location: [facility] HR: 84 * : 1985 (M/d/yyyy) Gender: Female Height: 67 in * Age: 31 yrs Ethnicity: CA Weight: 243 lb * Ordering Physician: Ember Croft PA-C * Performed By: Haily Berger RCS * * Reason For Study: Pulmonary * BSA: 2.2 m2 * The study was technically limited. * -- Conclusions -- * The study was technically limited. * There is no evidence of pulmonary hypertension. The PA systolic pressure is less than 36 mmHg. * The right ventricle is grossly normal size. * The right ventricular systolic function is normal. * Right atrial size is normal. * The left ventricle is normal in size. * Left ventricular systolic function is normal. * Ejection Fraction = 60-65%. * The left atrial size is normal. * No significant valvular pathology. Procedure Details * A complete two-dimensional transthoracic echocardiogram was performed (2D, M-mode, Doppler and color flow Doppler). * There were technical limitations due to patient'spoor positioning * Patient sitting for imagining. Definity not used due to patient being 25 wks . Left Ventricle * The left ventricle is normal in size. * There is normal left ventricular wall thickness. * Left ventricular systolic function is normal. * Ejection Fraction = 60-65%. * The left ventricular wall motion is normal. Right Ventricle * The right ventricle is grossly normal size. * The right ventricular systolic function is normal. Atria * The left atrial size is normal. * Right atrial size is normal. Mitral Valve * The mitral valve anatomy is normal. * There is trace mitral regurgitation. Tricuspid Valve * The tricuspid valve is not well visualized. * Significant tricuspid regurgitation is absent. Aortic Valve * The aortic valve is normal in structure and function. Pulmonic Valve * The pulmonic valve is not well visualized. * There is no significant pulmonary regurgitation. Great Vessels * The aortic root and proximal ascending aorta are normal sized. Pericardium/Pleural * There is no pericardial effusion. Great Vessels * There is no evidence of pulmonary hypertension. The PA systolic pressure is less than 36 mmHg. MMode 2D Measurements and Calculations IVSd 0.94 cm IVSs 1.1 cm LVIDd 4.6 cm LVIDs 3.1 cm LVPWd 0.97 cm LVPWs 1.1 cm IVS/LVPW 0.97 FS 32.4 % EDV(Teich) 97.5 ml ESV(Teich) 38.3 ml EF(Teich) 60.7 % EDV(cubed) 97.5 ml ESV(cubed) 30.2 ml EF(cubed) 69.1 % % IVS thick 16.1 % % LVPW thick 8.8 % LV mass(C)d 149.2 grams LV mass(C)dI 67.9 grams/m\S\2 LV mass(C)s 96.5 grams LV mass(C)sI 43.9 grams/m\S\2 CO(Teich) 4.6 l/min CI(Teich) 2.1 l/min/m\S\2 SV(Teich) 59.2 ml SI(Teich) 26.9 ml/m\S\2 CO(cubed) 5.3 l/min CI(cubed) 2.4 l/min/m\S\2 SV(cubed) 67.3 ml SI(cubed) 30.7 ml/m\S\2 Ao root diam 3.3 cm Ao root area 8.8 cm\S\2 ACS 1.2 cm LA dimension 2.7 cm LA/Ao 0.80 LVAd ap4 44.0 cm\S\2 LVLd ap4 9.0 cm EDV(MOD-sp4) 176.0 ml LVAs ap4 22.9 cm\S\2 LVLs ap4 7.3 cm ESV(MOD-sp4) 63.0 ml EF(MOD-sp4) 64.2 % LVAd ap2 42.8 cm\S\2 LVLd ap2 9.6 cm EDV(MOD-sp2) 159.0 ml LVAs ap2 22.9 cm\S\2 LVLs ap2 8.1 cm ESV(MOD-sp2) 55.0 ml EF(MOD-sp2) 65.4 % CO(MOD-sp4) 8.8 l/min CI(MOD-sp4) 4.0 l/min/m\S\2 SV(MOD-sp4) 113.0 ml SI(MOD-sp4) 51.4 ml/m\S\2 CO(MOD-sp2) 8.1 l/min CI(MOD-sp2) 3.7 l/min/m\S\2 SV(MOD-sp2) 104.0 ml SI(MOD-sp2) 47.3 ml/m\S\2 Doppler Measurements and Calculations MV E max swathi 112.0 cm/sec MV A max swathi 70.6 cm/sec MV E/A 1.6 MV P1/2t max swathi 126.0 cm/sec MV P1/2t 73.1 msec MVA(P1/2t) 3.0 cm\S\2 MV dec slope 504.5 cm/sec\S\2 MV dec time 0.21 sec Ao V2 max 197.2 cm/sec Ao max PG 15.6 mmHg Ao max PG (full) 4.7 mmHg LV V1 max PG 10.9 mmHg LV V1 max 164.7 cm/sec TR max swathi 204.9 cm/sec
[2016-08-19 13:12] LABS: HEMATOCRIT 33.7 % (37-47); MEAN CELL VOLUME 84.9 fL (80-100); MEAN CORPUSCULAR HEMOGLOBIN 29.2 pg (25-34); MEAN CORPUSCULAR HGB CONC 34.4 g/dl (32-36); MEAN PLATELET VOLUME 9.6 fL (7.4-10.4); PLATELET COUNT 368 K/uL (130-400); RED BLOOD COUNT 3.97 M/uL (4.2-5.4); WHITE BLOOD COUNT 31.72 K/uL (4.8-10.8)
[2016-08-19 13:16] LABS: INR 1.3 (0.9-1.1)
[2016-08-19 13:18] LABS: ALLEN TEST POS (POS); ARTERIAL BLD GAS O2 SATURATION 94.6 % (90-95); ARTERIAL BLOOD GAS BASE EXCESS 2.4 mEq/L (-9-1.8); ARTERIAL BLOOD GAS HCO3 25 mmol/L (19-24); ARTERIAL BLOOD GAS PO2 73 mm/Hg (80-95); O2 ADMINISTRATION 4L
[2016-08-19 13:20] LABS: BUN/CREATININE RATIO 9.9 (10-20); CALCIUM 8.3 mg/dl (8.5-10.1); CREATININE 0.51 mg/dl (0.60-1.20); POTASSIUM 3.7 mmol/L (3.5-5.1)
[2016-08-19 13:23] LABS: ALB/GLOB RATIO 0.3 (0.9-2)
[2016-08-19 13:42] LABS: BASO % 0.4 %; BASO ABS # 0.13 K/uL (0-0.2); COMPLETE YES; EOS % 0.1 %; IG% 4.9 %; LYMPH % 10.4 %; MONO % 3.5 %; NEUT % 80.7 %
[2016-08-19] MEDS ORDERED: HYDROmorphone INJ 1 MG/ML SYR IV ONE (13:45)
--- NOTE | 2016-08-19 14:05 | DIAGNOSTIC IMAGING REPORT ---
CHEST ONE VIEW PORTABLE CLINICAL HISTORY: pneumonia COMPARISON STUDY: 08/14/2016 FINDINGS: There is been interval development of a moderate left pleural effusion with associated left basilar airspace opacities. There is a small right pleural effusion. There are persistent but improving right basilar airspace opacities. There is no failure.[ IMPRESSION: 1. Interval development of a moderate left pleural effusion with associated left basilar airspace opacities 2. Suspected trace right pleural effusion 3. Persistent but improving right basilar airspace opacities Electronically signed by: Ezio Wylie M.D. 08/19/2016 2:03 PM Dictated Date/Time: 08/19/2016 2:01 PM
[2016-08-19] MEDS ORDERED: HYDROmorphone INJ 0.5 MG/0.5 ML SYR ONE ×2 (14:15→14:50)
--- NOTE | 2016-08-19 15:34 | Progress Note ---
Progress Note Date of Service Aug 19, 2016. Progress Note Consult Dictated #[id number]
--- NOTE | 2016-08-19 15:53 | CONSULTATION REPORT ---
DATE OF CONSULTATION: 08/19/2016 CHIEF COMPLAINT: Pleural effusion on the left side. HISTORY OF PRESENT ILLNESS: This is a 31-year-old female who is currently . The patient says that she is due on November 21 of this year and this is her third . The patient says for approximately the past 5 days, she has had constitutional symptoms such as fevers, shakes, chills and subsequently developed some shortness of breath. The patient says she did see an outpatient primary care physician, who treated the patient with steroids. She said her symptoms got progressively worse, so she was sent to [facility] on August 14 of this year. At the time of admission, the patient did undergo a CT scan of her chest that showed that she had bilateral consolidative infiltrative change in the lower lung gutierres bilaterally. The patient was noted to have several small second and third order pulmonary emboli on the left and to a lesser extent the right lower lobe distributions. Since admission, the patient has been anticoagulated with Lovenox and she has been treated with antibiotics in an appropriate fashion. Despite this treatment, however, the patient has subsequently had interval development of a pleural effusion, which was noted on the left side on today's chest x-ray. For this reason, we were asked to see her for consultation. Concerning other symptomatology, the patient has not had any recent falls, head injuries, visual changes, tinnitus or sore throat. She denies any neck pain. She does note pleuritic chest pain that is worse on the left, but also present to some degree in the right. She notes she is short of breath with activity. She does admit to fever, shakes as well as chills. She denies abdominal pain, nausea, vomiting or diarrhea. She denies any myalgias. No dysuria is noted. She has no history of stroke or seizure. She denies history of migraine headache. She does have no prior history of DVT or PE. PAST MEDICAL HISTORY: Includes, 1. A questionable history of prediabetes. 2. Pulmonary emboli, which was diagnosed this admission. PAST SURGICAL HISTORY: Includes, 1. x2. 2. Tonsillectomy. ALLERGIES: None. OUTPATIENT MEDICATION REGIMEN: Includes, 1. P.r.n. Tylenol. 2. P.r.n. albuterol. 3. P.r.n. guaifenesin. 4. P.r.n. Motrin. 5. Multivitamin daily. 6. Prednisone tapered pack that was recently prescribed. CURRENT INPATIENT MEDICATIONS: Include, 1. P.r.n. Dilaudid. 2. Colace 100 mg twice daily as needed. 3. Lidoderm patch. 4. Percocet as needed. 5. Zosyn. 6. vitamins. 7. Zithromax 250 mg daily. SOCIAL HISTORY: The patient admits to smoking for approximately 13 years one half pack of cigarettes per day. FAMILY HISTORY: She says her grandmother may have had blood clots, but she is unsure of this. REVIEW OF SYSTEMS: As noted above. PHYSICAL EXAMINATION: VITAL SIGNS: The patient is afebrile with temperature of 37.0, pulse 94 and regular, respirations are 20-30 and unlabored, blood pressure 132/76, and pulse ox 97% on 4 liters. SKIN: Warm with good turgor. GENERAL: She is alert. She is oriented x3. She is in no distress. HEENT: Head is atraumatic and normocephalic. EYES: Pupils equal, round and reactive to light and accommodation. Extraocular motions are intact. EARS: Auditory acuity is grossly intact. NOSE: Nasal patency was intact. Sinuses are nontender. MOUTH: Moist without exudates. NECK: Supple. There is no JVD. CARDIOVASCULAR: Regular rate and rhythm. LUNGS: Revealed decreased breath sounds bilaterally, worse on the left. She was not using accessory muscles. ABDOMEN: Soft and nontender. EXTREMITIES: Revealed no cyanosis or clubbing. NEUROLOGIC: Revealed no focal deficits. DIAGNOSTIC DATA: As noted above. IMPRESSION: A 31-year-old female with a suspected left pleural effusion. PLAN: I suspect that if a pleural effusion is present it is likely infectious in nature. We will perform a bedside ultrasound to confirm the presence of fluid and perform a thoracentesis if we can find a fluid pocket that is suitable for thoracentesis. We will of course send the fluid for appropriate laboratory and analytic studies. Addendum: A bedside ultrasound showed much less fluid than I suspected. Will hold off on the thoracentesis tonight and hold the Lovenox and repeat CXR and ultrasound tomorrow morning. [facility]
[2016-08-19] MEDS ORDERED: HYDROmorphone INJ 1 MG/ML SYR IV PRN (16:00)
[2016-08-19] MEDS: DiphenhydrAMINE HCL 50 MG/ML VIAL IV PRN ×2 (16:20→21:05)
--- NOTE | 2016-08-19 18:25 | CRITICAL CARE CONSULTATION ---
DATE OF CONSULTATION: 08/19/2016 CHIEF COMPLAINT: Chest pain. HISTORY OF PRESENT ILLNESS: The patient is a 31-year-old 26-week patient who is transferred from the floor to the intensive care unit by the hospitalist service. She has a past medical history significant for depression as well as section x2 in 2009 and 2011. She presented to the Emergency Department on August 14 after being ill for 6 days. She has had a cough productive of green sputum as well as what sounds like pleuritic chest pain, for which she was seen by her physician on August 11. At that time, she was given albuterol and prednisone, being diagnosed with costochondritis. She presented to the Emergency Department complaining of shortness of breath and chest pain. The pain was worse with deep inspiration, coughing and crying. She also complained of left flank pain. In the Emergency Department, she was given 1 liter of normal saline, 4 mg of morphine, Benadryl 25 mg, a DuoNeb as well as Rocephin and azithromycin. She was admitted initially to the telemetry unit after chest x-ray showed bibasilar infiltrates as well as perihilar infiltrates. CT angiogram of the chest on the day of admission showed several small second order or third order emboli, primarily involving the left and to a lesser extent right lower lobe distribution. Also diffuse bilateral consolidative infiltrative changes in the lower lung regions bilaterally with additional round atelectatic and/or infiltrative changes involving the upper lungs bilaterally. This study "did not appear to support the possibility that all findings are secondary to pulmonary emboli." She was started on therapeutic doses of Lovenox b.i.d. and was initially placed on IV fluids. Her IV fluids were decreased and eventually stopped due to concerns of increasing edema. Her pain was initially treated with Percocet and Dilaudid was added to her regimen. She received Zosyn and clindamycin initially when she was admitted to the hospital. The clindamycin was discontinued and she was started on azithromycin. She has been seen by the infectious disease service for persistent white blood cell count. Her procalcitonin on August 16 was 0.5. Today, she continued to complain of chest pain, worse with deep inspiration. The pain, she feels is making her breathing worse. She also says she becomes anxious, which makes her breathing worse. She has had a normal heart rate since August 15 and her respiratory rate has varied. Earlier today it was 38. She has been using the incentive spirometer, but not particularly effectively. She continues to cough up some brown sputum. Shortly prior to her transfer to the intensive care unit, a portable chest x-ray was obtained which shows a moderate sized left pleural effusion. The thoracic surgery service was consulted and did an ultrasound of the chest. At this point, they do not believe there is a lot of fluid there for them to drain. They are going to reassess her tomorrow. Additionally, I should note that today her transaminases and alkaline phosphatase are mildly elevated and will be described later in the dictation. Additionally, she has had 2 echocardiograms since her admission, the most recent being today, showing a PA systolic pressure less than 36, a grossly normal right ventricular size and function, left ventricular size and function are normal, ejection fraction preserved at 60-65%. The obstetric service has been following the patient regularly and doing nonstress test on the fetus. There have been no concerns reported as far as I am aware of. PAST MEDICAL HISTORY: Depression, , tonsillectomy and adenoidectomy. ALLERGIES: No known drug allergies. PREHOSPITAL MEDICATIONS: Acetaminophen, albuterol, guaifenesin, ibuprofen, multivitamin, prednisone. PRESENT MEDICATIONS: Acetaminophen, azithromycin, Delsym syrup, Benadryl, Colace, Lovenox, Dilaudid, Atrovent, Xopenex, Lidoderm patch, Zofran, Percocet, Zosyn, vitamin. SOCIAL HISTORY: She is , unemployed and has 2 children. She has smoked half pack to 1 pack per day of cigarettes for 16 years and has continued to smoke during this . FAMILY HISTORY: Significant for endometriosis. REVIEW OF SYSTEMS: She feels anxious and tired. She feels short of breath. No nausea or vomiting. Appetite is fair. Lower extremity edema is not worse than what she thinks is usual for her. She denies abdominal pain and constipation. Additional review of systems is negative or noncontributory in a 12-point system other than what is described above. PHYSICAL EXAMINATION: VITAL SIGNS: Temperature 37, heart rate 94, respiratory rate 20-30, blood pressure 133/76, oxygen saturation 97% on 4 liters nasal cannula. HEENT: Pupils are equal, round and reactive to light. Oral mucosa is moist. NECK: Veins are flat. No adenopathy. LUNGS: Very decreased breath sounds in the left base, some rales in the right base. No rhonchi or wheezes. HEART: Regular rate and rhythm. ABDOMEN: Obese, firm, nontender. Active bowel sounds. I think I can palpate her uterus. EXTREMITIES: Warm with 2+ edema. LABORATORY DATA: Sodium 137, potassium 3.7, chloride 102, CO2 29, BUN 5, creatinine 0.51. AST 97, ALT 100, alkaline phosphatase 226, albumin 1.8, globulin 5.4, white blood cell count 31.7, hemoglobin 11.6, hematocrit 33.7, platelets 368 with a significant left shift. PT 14, INR 1.3. Urinalysis on August 17 shows trace ketones, small leukocyte esterase, greater than 30 epithelial cells and urine yeast with hyphae. MICROBIOLOGY DATA: Blood cultures 08/14 show no growth to date. Sputum culture was canceled. Urine culture shows yeast greater than 100,000 CFU per mL and Mary albicans 20,000 CFU per mL. C. diff negative. Portable chest x-ray from today as previously described. Lower extremity venous Dopplers show no evidence of DVT. IMPRESSION: 1. Hypoxemic respiratory failure. She is now requiring 4 liters nasal cannula and has developed a left pleural effusion since her admission to the hospital. With her leukocytosis and the possibility of pneumonia, I am concerned about empyema. The thoracic surgery service has evaluated her and are not impressed with the amount of fluid that she presently has in that effusion. They are going to reassess her tomorrow. Her hypoxemia could be due to pulmonary embolism and/or pneumonia or inflammatory process. 2. Small second or third order pulmonary emboli, now on Lovenox 111 mg subcutaneously b.i.d. Right ventricular function on 2 echocardiograms is within normal limits. 3. Chest pain, which sounds like pleuritic pain to me. No NSAIDs secondary to her . Her Dilaudid was increased today. 4. Mild elevation of the transaminases of unclear significance and etiology. 5. Left pleural effusion. 6. Yeast in the urine, although this was not a catheterized specimen. Consider repeating that culture. 7. Intrauterine of 26 weeks, being followed by the obstetrics service. 8. Tobacco use. PLAN 1. Neuro: Continue the Dilaudid and the Percocet. She seems to be more comfortable after several doses of 0.5 mg of Dilaudid. 2. Pulmonary: Continue bronchodilators and follow up the chest x-ray tomorrow. I would like her to try to use a flutter valve and if needed, we could always put her on BiPAP to try and expand the left side. It is unclear to me whether or not these infiltrates are solely due to pneumonia. Consider repeat CT scan of the chest. 3. Cardiovascular: No acute active issues. Echocardiogram is within normal limits. She does appear edematous but I do not think she has pulmonary edema. 4. Gastrointestinal: She is taking a diet. Follow the transaminases. Her abdomen is benign but could consider right upper quadrant ultrasound. 5. Renal: No acute issues. 6. Infectious disease: Continue the Zosyn as well as azithromycin. Follow the leukocytosis and perhaps we will get a sample from her left pleural effusion. Repeat urine culture. 7. Marketing Senior Recruiter: Continue recommendations by the OB service. Avoid unnecessary medications. 8. Heme: Continue Lovenox and follow CBC. Calls were made to [facility] regarding transfer to their facility before she was transferred to the intensive care unit. At this point, there are not any beds available. Continue present management until transfer. Thank you for asking me to see this patient. Addendum: I understand now that there is a bed available for her at [facility]. I will defer further work up due to impending transfer. CALI
--- NOTE | 2016-08-19 20:39 | Progress Note ---
Internal Med Progress Note Date of Service: Aug 19, 2016. Provider Documentation: pt seen at 11 am today SUBJECTIVE: chest pain worsened today , mostly left sided very tachypneic RR in 30's diaphoretic pain medications not working white count elevated > 31 K this AM D/w ID Dr Moore and telecommunications project manager Ob given worsening of clinical status even with broad spectrum Abx , therapeutic anticoagulation pt is 26 weeks -high risk plan to transfer pt to Tertiary care Center , [facility] Debbie spoke with Debbie , pt is accepted to ICU , accepting press tender smoke signal Dr Hanley at present there is no available bed in [facility] pt will be transferred to ICU while waiting to be transferred to [place] OBJECTIVE: Vital Signs-as noted below Exam: General-in distress for chest pain , diaphoretic Eyes-sclera non icteric ENT-NAD Neck-no thyromegaly Lungs-diminished, no wheeze or rales, tachypneic Heart-regular , + 2-3 bilateral pitting edema, Abdomen-Gravid uterus Extremities-Lower ext : as noted ; no calf tenderness, no rash or deformity Neuro-no focal deficit Lab data as noted below. ASSESSMENT & PLAN: This is a 25 week , 31 year old female with PMH of tobacco use disorder presented with worsening shortness of breath and found to have bilateral PEs and pneumonia/sepsis MARKED LEUKOCYTOSIS : WBC elevated > 31K blood cultures negative stool C diff negative lactic acid wnl interval elevation of LFT -possible due to sepsis D/w OB -given normal BP -low suspicion for pre eclampsia or HEELP syndrome pt transferred to ICU waiting to be transferred /Life flighted to [facility] for further care pt has been on Iv Zosyn /Zithromax since admission for sepsis /pneumonia - Stat portable Cxray : IMPRESSION: 1. Interval development of a moderate left pleural effusion with associated left basilar airspace opacities 2. Suspected trace right pleural effusion 3. Persistent but improving right basilar airspace opacities concern for empyema CT surgery consulted, pt evaluated in ICU thought to have not enough pleural effusion to safely drain recommend repeat CT chest in AM -if pt still not been transferred to [facility] WORSENING OF RESPIRATORY STATUS Sepsis secondary to Pneumonia Chest CT obtained showing diffuse bilateral infiltrative changes b/l upper lobes presented with leukocytosis, lactic acidosis, tachycardia lactic acid < 2 symptom improved with IV hydration , broad spectrum Abx leukocytosis worsened 28K -> 24 K -> 19K -> 21 K -> 32 K , repeat 31 K Abx : on IV Zosyn Zithromax Blood culture , sputum culture ordered -negative growth ID consult requested -appreciate input form Dr Moore ordered for Legionella, Mycoplasma -Ag assay -report pending on Zithromax -will provide adequate coverage for atypical micro organisms C diff toxin assay negative Cxray shows possible left sided interval development of pleural effusion suggestive of empyema pt will be transferred to Tertiary Care -to [facility] for further care Accepted in ICU -accepting press tender smoke signal Dr Pisano Bilateral PE Chest CT shows several small, second/third order emboli risk factors: and smoking lower ext USG negative for DVT ECHO : There is no evidence of pulmonary hypertension. The PA systolic pressure is less than 36 mmHg. The right ventricle is grossly normal size. The right ventricular systolic function is normal. Right atrial size is normal. The left ventricle is normal in size. Left ventricular systolic function is normal. Ejection Fraction = 60-65%. The left atrial size is normal. No significant valvular pathology. 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 TEACHER agreeable Coumadin contraindicated due to adverse effect will need to transferred to [facility] for high risk Hypokalemia replaced Second Trimester high risk due to above NST today -normal heart beat being followed by Alining Inspector will need to transferred to Tertiary care with NICU facility FULL CODE DVT PROPHYLAXIS therapeutic Lovenox DISPOSITION transfer /Life flight to [facility] for further care will be in ICU accepting Physician Dr Pisano Vital Signs: Date Time Temp Pulse Resp B/P Pulse Ox O2 Delivery O2 Flow Rate FiO2 08/19/16 20:01 37.1 92 39 129/85 97 Nasal Cannula 4.0 08/19/16 18:09 34 115/72 97 08/19/16 16:00 36.7 100 30 126/80 96 Nasal Cannula 4.0 08/19/16 16:00 97 Nasal Cannula 4.0 08/19/16 14:14 37.0 94 30 133/76 97 Nasal Cannula 4.0 08/19/16 13:00 88 20 94 Room Air 08/19/16 12:40 Nasal Cannula 4.0 96 Humidified Air 08/19/16 12:40 36.8 92 38 111/67 96 Nasal Cannula 4.0 Humidified Air 08/19/16 08:51 91 20 94 Room Air 08/19/16 08:45 94 Nasal Cannula 4.0 Humidified Air 08/19/16 07:45 36.8 82 28 108/69 96 Nasal Cannula 2.0 82 Humidified Air 08/19/16 07:45 Nasal Cannula 2.0 96 Humidified Air 08/19/16 04:15 86 28 96 Nasal Cannula 2.0 08/19/16 03:40 37.3 95 48 120/73 95 Nasal Cannula 2.0 Humidified Oxygen 08/19/16 03:40 95 Nasal Cannula 2.0 Humidified Oxygen 08/19/16 00:36 96 Room Air 08/18/16 23:50 36.5 88 48 122/75 94 Room Air 08/18/16 21:15 87 16 96 Room Air Lab Results: Results Past 24 Hours Test 08/19/16 06:55 08/19/16 12:52 08/19/16 13:06 Range/Units White Blood Count 32.59 31.72 4.8-10.8 K/uL Red Blood Count 3.96 3.97 4.2-5.4 M/uL Hemoglobin 11.3 11.6 12.0-16.0 g/dL Hematocrit 33.0 33.7 37-47 % Mean Corpuscular Volume 83.3 84.9 80-100 fL Mean Corpuscular Hemoglobin 28.5 29.2 25-34 pg Mean Corpuscular Hemoglobin Concent 34.2 34.4 32-36 g/dl RDW Standard Deviation 41.4 42.5 36.4-46.3 fL RDW Coefficient of Variation 13.5 13.6 11.5-14.5 % Platelet Count 345 368 130-400 K/uL Mean Platelet Volume 9.5 9.6 7.4-10.4 fL Sodium Level 136 137 136-145 mmol/L Potassium Level 3.4 3.7 3.5-5.1 mmol/L Chloride Level 102 102 98-107 mmol/L Carbon Dioxide Level 25 29 21-32 mmol/L Anion Gap 9.0 6.0 3-11 mmol/L Blood Urea Nitrogen 6 5 7-18 mg/dl Creatinine 0.42 0.51 0.60-1.20 mg/dl Est Creatinine Clear Calc Drug Dose 250.8 206.6 ml/min Estimated GFR () > 150.0 149.6 Estimated GFR (Non- 137.5 129.0 BUN/Creatinine Ratio 15.0 9.9 10-20 Random Glucose 80 93 70-99 mg/dl Calcium Level 8.3 8.3 8.5-10.1 mg/dl Magnesium Level 2.1 1.8-2.4 mg/dl Neutrophils (%) (Auto) 80.7 % Lymphocytes (%) (Auto) 10.4 % Monocytes (%) (Auto) 3.5 % Eosinophils (%) (Auto) 0.1 % Basophils (%) (Auto) 0.4 % Neutrophils # (Auto) 25.58 1.4-6.5 K/uL Lymphocytes # (Auto) 3.30 1.2-3.4 K/uL Monocytes # (Auto) 1.12 0.11-0.59 K/uL Eosinophils # (Auto) 0.04 0-0.5 K/uL Basophils # (Auto) 0.13 0-0.2 K/uL Immature Granulocyte % (Auto) 4.9 % Immature Granulocyte # (Auto) 1.55 0.00-0.02 K/uL Prothrombin Time 14.0 9.0-12.0 SECONDS Prothromb Time International Ratio 1.3 0.9-1.1 Fibrin Degradation Products 10-40 <10 mcg/ml Lactic Acid Level 1.7 0.4-2.0 mmol/L Total Bilirubin 0.4 0.2-1 mg/dl Aspartate Amino Transf (AST/SGOT) 97 15-37 U/L Alanine Aminotransferase (ALT/SGPT) 100 12-78 U/L Alkaline Phosphatase 226 45-117 U/L Total Protein 7.2 6.4-8.2 gm/dl Albumin 1.8 3.4-5.0 gm/dl Globulin 5.4 2.5-4.0 gm/dl Albumin/Globulin Ratio 0.3 0.9-2 Arterial Blood pH 7.50 7.35-7.45 Arterial Blood Partial Pressure CO2 34 35-46 mmHg Arterial Blood Partial Pressure O2 73 80-95 mm/Hg Arterial Blood HCO3 25 19-24 mmol/L Arterial Blood Oxygen Saturation 94.6 90-95 % Arterial Blood Base Excess 2.4 -9-1.8 mEq/L Arterial Blood Gas Delivery 4L Bin Test POS POS Microbiology Results 08/19/16 MRSA DNA Surveillance Screen - Final, Complete Specimen Negative for MRSA by DNA Probe 08/19/16 C.difficile Toxin B Gene (PCR) - Final, Complete No C. difficile toxin B gene detected
--- NOTE | 2016-08-19 20:50 | Discharge Summary ---
Discharge Summary Date of Service Aug 19, 2016. Discharge Summary Admission Date: Aug 14, 2016 at 13:26 Discharge Date: Aug 19, 2016 Discharge Disposition: Acute care facility ([facility] [place] ) Principal Diagnosis: SEPSIS /PNEUMONIA /BILATERAL PULMONARY EMBOLISM /3RD TRIMESTER Consultations: ID LOCOMOTIVE SWITCH OPERATOR CRITICAL CARE THORACIC SURGERY Medication Reconciliation Continued Medications: Acetaminophen (Tylenol) 325 Mg Tab 650 MG PO Q6 PRN for Pain or Fever Albuterol Sulfate (Proair Respiclick) 108 Mcg/Act Aer 2 PUFFS INH QID PRN for SOB/Wheezing Multivit/Min/Iron/Fol Ac/Pren ( Vitamin) Tab 1 TAB PO DAILY, TAB Discontinued Medications: Guaifenesin (Cough Syrup) 100 Mg/5 Ml Syp Ibuprofen (Ibuprofen) 200 Mg Cap Prednisone (Prednisone) Unknown Strength Tab 1 TAB PO UD, #1 PKT TAPER DOSE Admission Information HPI (per Admitting provider): This is a 31 year old female chronic smoker who is 25 weeks who presents to the ED with SOB. Patient became ill 6 days ago with cough productive of green sputum and chest pain. CP is constant for 6 days and worsens with exertion, talking, and deep inspiration. Currently rates pain 9/ 10. Morphine in ER helped initially. Starting 5 days ago she has associated fevers up to 102.9, chills, and shortness of breath. The SOB occurs at rest and worsens with exertion. Pt was seen by Dr. Nuñez on 08/11, was dx with viral URI and costochondritis and was started on albuterol inhaler and prednisone taper which she states did not help. She admits to heart racing and anxiety. Bilateral ankle edema is no worse than baseline. Has mild nausea when in severe pain. Not eating well. She is feeling the baby move normally. Pt denies nasal congestion, ear ache, sore throat, vomiting, diarrhea, dysuria, frequency, uterine contractions, vaginal bleeding, other abnormal bleeding, calf pain. Denies hx of prior DVT/ PE, lung disease, cardiac disorder, history of abnormal bleeding. No recent travel. Her children at home also have fever. Physical Exam (per Admitting): General Appearance: + pertinent finding (alert ill appearing 31 year old female, anxious and tearful at times, sitting on side of bed) Head: normocephalic, atraumatic Eyes: normal inspection ENT: hearing grossly normal, pharynx normal Neck: supple, trachea midline Respiratory/Chest: no respiratory distress, + decreased breath sounds, + crackles (crackles in right mid lung), + pertinent finding (+ reproducible chest wall pain) Cardiovascular: no murmur, + tachycardia (rate 100, regular) Abdomen/GI: normal bowel sounds, non tender, soft, + pertinent finding ( gravid uterus) Extremities/Musculoskelatal: no calf tenderness, + pertinent finding (trace ankle edema bilaterally) Neurologic/Psych: alert, oriented x 3, + pertinent finding (anxious, grossly nonfocal) Skin: normal color, warm/dry Hospital Course This is a 25 week , 31 year old female with PMH of tobacco use disorder presented with worsening shortness of breath and found to have bilateral PEs and pneumonia/sepsis MARKED LEUKOCYTOSIS : WBC elevated > 31K blood cultures negative stool C diff negative lactic acid wnl interval elevation of LFT -possible due to sepsis D/w OB -given normal BP -low suspicion for pre eclampsia or HEELP syndrome pt transferred to ICU waiting to be transferred /Life flighted to [facility] for further care pt has been on Iv Zosyn /Zithromax since admission for sepsis /pneumonia - Stat portable Cxray : IMPRESSION: 1. Interval development of a moderate left pleural effusion with associated left basilar airspace opacities 2. Suspected trace right pleural effusion 3. Persistent but improving right basilar airspace opacities concern for empyema CT surgery consulted, pt evaluated in ICU thought to have not enough pleural effusion to safely drain recommend repeat CT chest in AM -if pt still not been transferred to [facility] WORSENING OF RESPIRATORY STATUS Sepsis secondary to Pneumonia Chest CT obtained showing diffuse bilateral infiltrative changes b/l upper lobes presented with leukocytosis, lactic acidosis, tachycardia lactic acid < 2 symptom improved with IV hydration , broad spectrum Abx leukocytosis worsened 28K -> 24 K -> 19K -> 21 K -> 32 K , repeat 31 K Abx : on IV Zosyn Zithromax Blood culture , sputum culture ordered -negative growth ID consult requested -appreciate input form Dr Moore ordered for Legionella, Mycoplasma -Ag assay -report pending on Zithromax -will provide adequate coverage for atypical micro organisms C diff toxin assay negative Cxray shows possible left sided interval development of pleural effusion suggestive of empyema pt will be transferred to Tertiary Care -to [facility] for further care Accepted in ICU -accepting laborer pipelines Dr Pisano Bilateral PE Chest CT shows several small, second/third order emboli risk factors: and smoking lower ext USG negative for DVT ECHO : There is no evidence of pulmonary hypertension. The PA systolic pressure is less than 36 mmHg. The right ventricle is grossly normal size. The right ventricular systolic function is normal. Right atrial size is normal. The left ventricle is normal in size. Left ventricular systolic function is normal. Ejection Fraction = 60-65%. The left atrial size is normal. No significant valvular pathology. 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 for further care will be in ICU accepting Physician Dr Pisano Total time spent on discharge = 40 MINS This includes examination of the patient, discharge planning, medication reconciliation, and communication with other providers. Discharge Instructions Discharge Instructions Date of Service Aug 19, 2016. Admission Reason for Admission: Pneumonia, Pulmonary Embolism Discharge Discharge Diagnosis / Problem: SEPSIS /PNEUMONIA /BILATERAL PULMONARY EMBOLISM /3RD TRIMESTER Discharge Goals Goal(s): Improve disease control, Diagnostic testing, Therapeutic intervention Activity Recommendations Activity Limitations: as noted below (bed rest ) . Instructions / Follow-Up Instructions / Follow-Up TRANSFER TO ICU IN [facility] Current Hospital Diet Patient's current hospital diet: Regular Diet Discharge Diet Recommended Diet: Regular Diet Pending Studies Studies pending at discharge: no Medical Emergencies . Who to Call and When: Medical Emergencies: If at any time you feel your situation is an emergency, please call 911 immediately. . Non-Emergent Contact Non-Emergency issues call your: Primary Care Provider . . "Provider Documentation" section prepared by Deb Hager. VTE Core Measure Inpt VTE Proph given/why not?: Enoxaparin (Lovenox)SQ Additional Copies To Shahrzad Banks D.O., Evan T MD
== END 2016-08-19 21:25 | disposition short-term general hospital (02) | DRG 781 ==
LOC: ENRESERVTM → ENRESERVDT → C.EDB 10:12 → C.MSICU 13:26 → C.MS4N 08-16 15:31 → C.MSICU 08-19 14:14
PROVIDERS: ADMIT Internal Medicine; ATTEND Hospitalist
DX: O98.812 Other maternal infectious and parasitic diseases complicating pregnancy, second trimester (principal); O88.812 Other embolism in pregnancy, second trimester; J18.9 Pneumonia, unspecified organism; E87.2 Acidosis; J86.9 Pyothorax without fistula; J96.90 Respiratory failure, unspecified, unspecified whether with hypoxia or hypercapnia; O99.332 Smoking (tobacco) complicating pregnancy, second trimester; I26.99 Other pulmonary embolism without acute cor pulmonale; F17.210 Nicotine dependence, cigarettes, uncomplicated; Z3A.25 25 weeks gestation of pregnancy; O99.512 Diseases of the respiratory system complicating pregnancy, second trimester; O99.89 Other specified diseases and conditions complicating pregnancy, childbirth and the puerperium; O99.282 Endocrine, nutritional and metabolic diseases complicating pregnancy, second trimester; E87.6 Hypokalemia

== ENCOUNTER 2016-11-07 12:09 | Outpatient (CLI) | payer OTHER ==
[~2016-11-07 12:09] MED LIST: ALBU18002 INH; GUAI100S18; IBUP1CAP9; PRED-301 PO; PRENTAB26 PO; TYL325X PO
[2016-11-07] MEDS ORDERED: LACTATED RINGER'S 1000ML 500 ML IV ONE (12:42)
== END 2016-11-07 15:26 | disposition home or self-care (01) ==
LOC: C.LD 12:09 → C.OPB 12:09
PROVIDERS: ATTEND Obstetrics & Gynecology
DX: O62.9 Abnormality of forces of labor, unspecified (principal); O26.893 Other specified pregnancy related conditions, third trimester; Z86.711 Personal history of pulmonary embolism; Z3A.38 38 weeks gestation of pregnancy

== ENCOUNTER 2016-11-13 09:11 | Outpatient (CLI) | payer OTHER ==
[~2016-11-13] VITALS: Ht 170.2 cm; Wt 100.0 kg
[2016-11-13 09:55] VITALS: Ht 170.2 cm; Wt 100.0 kg
[2016-11-13] MEDS ORDERED: NURSING VERBAL MED ORDER ONE (10:15)
[2016-11-13] MEDS ORDERED: BUTORPHANOL TARTRATE 1 MG/ML VIAL IV PRN (10:30)
[2016-11-13] MEDS ORDERED: LACTATED RINGER'S 1000ML 500 ML IV ONE (10:45)
[2016-11-13] MEDS ORDERED: LACTATED RINGER'S 1000ML 1,000 ML IV SCH (11:00)
== END 2016-11-13 13:11 | disposition short-term general hospital (02) ==
LOC: C.OPB 09:11 → C.LD 09:11 → C.OPB 13:11
PROVIDERS: ATTEND Obstetrics & Gynecology
DX: O60.03 Preterm labor without delivery, third trimester (principal); O62.9 Abnormality of forces of labor, unspecified; Z3A.38 38 weeks gestation of pregnancy; Z86.711 Personal history of pulmonary embolism

== ENCOUNTER 2017-08-18 11:57 | Emergency (ER) | payer OTHER ==
[~2017-08-18] VITALS: Ht 170.2 cm; Wt 117.9 kg
[2017-08-18 12:03] VITALS: TEMP 36.9; Ht 170.2 cm; Wt 117.9 kg
[2017-08-18] MEDS ORDERED: OPTIRAY 320 IV PRN (12:30)
[2017-08-18 12:32] LABS: BASO % 0.2 %; BASO ABS # 0.02 K/uL (0-0.2); EOS % 0.4 %; EOS ABS # 0.04 K/uL (0-0.5); HEMOGLOBIN 11.5 g/dL (12.0-16.0); IG# 0.03 K/uL (0.00-0.02); LYMPH % 18.6 %; LYMPH ABS # 1.68 K/uL (1.2-3.4); MEAN CELL VOLUME 82.9 fL (80-100); MEAN CORPUSCULAR HGB CONC 33.8 g/dl (32-36); MEAN PLATELET VOLUME 9.8 fL (7.4-10.4); MONO % 6.1 %; MONO ABS # 0.55 K/uL (0.11-0.59); NEUT % 74.4 %; NEUT ABS # 6.71 K/uL (1.4-6.5); PLATELET COUNT 258 K/uL (130-400); RED CELL DISTRIBUTION WIDTH CV 14.2 % (11.5-14.5); WHITE BLOOD COUNT 9.03 K/uL (4.8-10.8)
[2017-08-18 12:45] LABS: ALBUMIN 2.9 gm/dl (3.4-5.0); ALT/SGPT 42 U/L (12-78); AST/SGOT 15 U/L (15-37); BLOOD UREA NITROGEN 8 mg/dl (7-18); CALCIUM 8.9 mg/dl (8.5-10.1); CARBON DIOXIDE 22 mmol/L (21-32); CREATININE 0.57 mg/dl (0.60-1.20); GLUCOSE 81 mg/dl (70-99); LIPASE 119 U/L (73-393); POTASSIUM 3.5 mmol/L (3.5-5.1); SODIUM 137 mmol/L (136-145)
--- NOTE | 2017-08-18 12:48 | DIAGNOSTIC IMAGING REPORT ---
CHEST ONE VIEW PORTABLE CLINICAL HISTORY: cough preg sent for CT pE dyspnea COMPARISON STUDY: 08/19/2016 FINDINGS: The bones soft tissues and hemidiaphragms are normal. The cardiomediastinal silhouette is normal. The lungs are clear. The pulmonary vasculature is normal. IMPRESSION: Negative chest. The above report was generated using voice recognition software. It may contain grammatical, syntax or spelling errors. Electronically signed by: Wicho Ambriz M.D. 08/18/2017 12:47 PM Dictated Date/Time: 08/18/2017 12:47 PM
[2017-08-18 12:50] LABS: ALKALINE PHOSPHATASE 116 U/L (45-117); TOTAL PROTEIN 7.7 gm/dl (6.4-8.2)
[2017-08-18] MEDS ORDERED: BUPR-79 PO (13:23)
--- NOTE | 2017-08-18 13:35 | DIAGNOSTIC IMAGING REPORT ---
(CHEST FOR PE) ANGIO WITH CT DOSE: 664.29 mGy.cm HISTORY: 32 years-old Female presents with acute shortness of breath with . TECHNIQUE: Multiple CTA images of the chest were obtained after the intravenous administration of 119 ml Optiray 320. Coronal and sagittal MIPS were obtained from the axial data set and were submitted for review. A dose lowering technique was utilized adhering to the principles of ALARA. COMPARISON: Chest radiograph 08/18/2017, CTA chest 08/14/2016 FINDINGS: CTA: Heart is normal in size without pericardial effusion. The thoracic aorta is normal in both course and caliber without aneurysm or dissection. Imaged great vessels appear patent. The pulmonary arterial tree is opacified to level of the subsegmental branches and demonstrates no focal filling defects to suggest pulmonary thromboembolic disease. CT CHEST: No dominant thyroid nodule. No pathologic adenopathy identified. No pneumothorax or pleural effusion. There is mild subsegmental bibasilar atelectasis. No focal airspace consolidation identified to suggest pneumonia. Central airways appear patent. The liver appears prominent in size. No acute abnormality of the imaged upper abdomen. Soft tissues are within normal limits. The bones appear intact. IMPRESSION: 1. No acute intrathoracic abnormality identified, specifically no acute aortic pathology or evidence of pulmonary thromboembolic disease. 2. No focal airspace consolidation to suggest pneumonia. 3. No pathologic adenopathy. The above report was generated using voice recognition software. It may contain grammatical, syntax or spelling errors. Electronically signed by: Beto Bryson M.D. 08/18/2017 1:34 PM Dictated Date/Time: 08/18/2017 1:27 PM
[2017-08-18 14:47] VITALS: BP 106/40; PULSE 76; O2SAT 98
[2017-08-18 15:04] LABS: ISTAT CREATININE 0.5 mg/dl (0.6-1.3); ISTAT IONIZED CALCIUM 1.16 mmol/l (1.12-1.32); ISTAT POTASSIUM 3.5 mEq/L (3.3-5.0)
--- NOTE | 2017-08-18 15:24 | EMERGENCY ROOM VISIT NOTE ---
History Report prepared by Jose Francisco: Basil Avilez Under the Supervision of: Dr. Alvaro John D.O. First contact with patient: 12:13 Chief Complaint: SHORTNESS OF BREATH Stated Complaint: COULDNT CATCH BREATH History of Present Illness The patient is a 32 year old female with a history of clots in her lungs who presents to the Emergency Room with complaints of an episode of chest pain that occurred 2 days ago. She states that during that day, she suddenly started having an episode of shortness of breath, with bad chest pain. The patient says that she was shaking, and had a temperature of 102. She notes that the next morning, she woke up and felt mostly fine, other than some residual left-sided chest pain which she still has. She says that she no longer had a fever after that day. The patient notes that she started coughing up green phlegm 2 days ago as well, which has persisted. She adds that she had right leg swelling, but that mostly resolved 2 days ago. 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 The patient was off Lovenox for a while, but was put back on it 2 to 3 weeks ago. She is currently . She denies any runny nose, abdominal pain, vaginal bleeding or discharge. Source of History: patient Onset: 2 days ago Position: chest Quality: other (pain) Timing: other (episode) Associated Symptoms: + fevers (but resolved), + cough (green phlegm), + SOB , No abdominal pain Note: Right leg swelling that mostly resolved 2 days ago. Denies runny nose, vaginal bleeding or discharge. Review of Systems See HPI for pertinent positives & negatives. A total of 10 systems reviewed and were otherwise negative. Past Medical & Surgical Medical Problems: (1) Depression (2) Pneumonia (3) Pulmonary embolism (4) Pulmonary embolism affecting (5) Pulmonary embolism affecting (6) Uterine contractions Surgical Problems: (1) Hx of section complicating (2) Previous section complicating (3) S/P section (4) S/P tonsillectomy and adenoidectomy Family History Endometriosis Social History Smoking Status: Current Every Day Smoker Alcohol Use: none Drug Use: none Marital Status: Housing Status: lives with family Occupation Status: unemployed Current/Historical Medications Scheduled Multivit/Min/Iron/Fol Ac/Pren ( Vitamin), 1 TAB PO DAILY Miscellaneous Medications Bupropion (Wellbutrin Sr), 150 MG PO Allergies Coded Allergies: No Known Allergies (Unverified , NONE, 08/18/17) Physical Exam Vital Signs Date Time Temp Pulse Resp B/P (MAP) Pulse Ox O2 Delivery O2 Flow Rate FiO2 08/18/17 14:47 78 20 106/40 98 Room Air 08/18/17 14:47 76 20 106/40 98 08/18/17 13:33 78 20 168/99 98 Room Air 08/18/17 12:35 98 Room Air 08/18/17 12:03 36.9 83 18 129/77 97 Room Air Physical Exam GENERAL: Sitting up in bed, anxious, no acute distress, nontoxic EYE EXAM: normal conjunctiva. OROPHARYNX: no exudate, no erythema, lips, buccal mucosa, and tongue normal and mucous membranes are moist NECK: supple, no nuchal rigidity, no adenopathy, non-tender LUNGS: Clear to auscultation. Normal chest wall mechanics HEART: no murmurs, S1 normal and S2 normal ABDOMEN: abdomen soft, non-tender, normo-active bowel sounds, no masses, no rebound or guarding. BACK: Back is symmetrical on inspection and there is no deformity, no midline tenderness, no CVA tenderness. SKIN: no rashes and no bruising UPPER EXTREMITIES: upper extremities are grossly normal. LOWER EXTREMITIES: calves equal bilaterally. NEURO EXAM: Normal sensorium, cranial nerves II-XII grossly intact, normal speech, no gross weakness of arms, no gross weakness of legs. Medical Decision & Procedures ER Provider Diagnostic Interpretation: Radiology results as stated below per my review and the radiologist's interpretation: (CHEST FOR PE) ANGIO WITH CT DOSE: 664.29 mGy.cm HISTORY: 32 years-old Female presents with acute shortness of breath with . TECHNIQUE: Multiple CTA images of the chest were obtained after the intravenous administration of 119 ml Optiray 320. Coronal and sagittal MIPS were obtained from the axial data set and were submitted for review. A dose lowering technique was utilized adhering to the principles of ALARA. COMPARISON: Chest radiograph 08/18/2017, CTA chest 08/14/2016 FINDINGS: CTA: Heart is normal in size without pericardial effusion. The thoracic aorta is normal in both course and caliber without aneurysm or dissection. Imaged great vessels appear patent. The pulmonary arterial tree is opacified to level of the subsegmental branches and demonstrates no focal filling defects to suggest pulmonary thromboembolic disease. CT CHEST: No dominant thyroid nodule. No pathologic adenopathy identified. No pneumothorax or pleural effusion. There is mild subsegmental bibasilar atelectasis. No focal airspace consolidation identified to suggest pneumonia. Central airways appear patent. The liver appears prominent in size. No acute abnormality of the imaged upper abdomen. Soft tissues are within normal limits. The bones appear intact. IMPRESSION: 1. No acute intrathoracic abnormality identified, specifically no acute aortic pathology or evidence of pulmonary thromboembolic disease. 2. No focal airspace consolidation to suggest pneumonia. 3. No pathologic adenopathy. The above report was generated using voice recognition software. It may contain grammatical, syntax or spelling errors. Electronically signed by: Beto Bryson M.D. 08/18/2017 1:34 PM Dictated Date/Time: 08/18/2017 1:27 PM CHEST ONE VIEW PORTABLE CLINICAL HISTORY: cough preg sent for CT pE dyspnea COMPARISON STUDY: 08/19/2016 FINDINGS: The bones soft tissues and hemidiaphragms are normal. The cardiomediastinal silhouette is normal. The lungs are clear. The pulmonary vasculature is normal. IMPRESSION: Negative chest. The above report was generated using voice recognition software. It may contain grammatical, syntax or spelling errors. Electronically signed by: Wicho Ambriz M.D. 08/18/2017 12:47 PM Dictated Date/Time: 08/18/2017 12:47 PM Laboratory Results 08/18/17 12:20 Red Blood Count 4.10, Mean Corpuscular Volume 82.9, Mean Corpuscular Hemoglobin 28.0, Mean Corpuscular Hemoglobin Concent 33.8, Mean Platelet Volume 9.8, Neutrophils (%) (Auto) 74.4, Lymphocytes (%) (Auto) 18.6, Monocytes (%) (Auto) 6.1, Eosinophils (%) (Auto) 0.4, Basophils (%) (Auto) 0.2, Neutrophils # (Auto) 6.71, Lymphocytes # (Auto) 1.68, Monocytes # (Auto) 0.55, Eosinophils # (Auto) 0.04, Basophils # (Auto) 0.02 08/18/17 12:20 Test 08/18/17 12:20 08/18/17 12:25 08/18/17 12:45 White Blood Count 9.03 K/uL (4.8-10.8) Red Blood Count 4.10 M/uL (4.2-5.4) Hemoglobin 11.5 g/dL (12.0-16.0) Hematocrit 34.0 % (37-47) Mean Corpuscular Volume 82.9 fL (80-100) Mean Corpuscular Hemoglobin 28.0 pg (25-34) Mean Corpuscular Hemoglobin Concent 33.8 g/dl (32-36) Platelet Count 258 K/uL (130-400) Mean Platelet Volume 9.8 fL (7.4-10.4) Neutrophils (%) (Auto) 74.4 % Lymphocytes (%) (Auto) 18.6 % Monocytes (%) (Auto) 6.1 % Eosinophils (%) (Auto) 0.4 % Basophils (%) (Auto) 0.2 % Neutrophils # (Auto) 6.71 K/uL (1.4-6.5) Lymphocytes # (Auto) 1.68 K/uL (1.2-3.4) Monocytes # (Auto) 0.55 K/uL (0.11-0.59) Eosinophils # (Auto) 0.04 K/uL (0-0.5) Basophils # (Auto) 0.02 K/uL (0-0.2) RDW Standard Deviation 43.0 fL (36.4-46.3) RDW Coefficient of Variation 14.2 % (11.5-14.5) Immature Granulocyte % (Auto) 0.3 % Immature Granulocyte # (Auto) 0.03 K/uL (0.00-0.02) Est Creatinine Clear Calc Drug Dose 189.9 ml/min Estimated GFR () 143.2 Estimated GFR (Non- 123.5 BUN/Creatinine Ratio 14.9 (10-20) Calcium Level 8.9 mg/dl (8.5-10.1) Total Bilirubin 0.2 mg/dl (0.2-1) Direct Bilirubin < 0.1 mg/dl (0-0.2) Aspartate Amino Transf (AST/SGOT) 15 U/L (15-37) Alanine Aminotransferase (ALT/SGPT) 42 U/L (12-78) Alkaline Phosphatase 116 U/L (45-117) Troponin I < 0.015 ng/ml (0-0.045) Total Protein 7.7 gm/dl (6.4-8.2) Albumin 2.9 gm/dl (3.4-5.0) Lipase 119 U/L (73-393) Bedside Hemoglobin 11.2 g/dl (12.0-16.0) Bedside Hematocrit 33 % (37-47) Bedside Sodium 139 mEq/L (135-144) Bedside Potassium 3.5 mEq/L (3.3-5.0) Bedside Chloride 105 mEq/L (101-112) Bedside Total CO2 26 mEq/l (24-31) Anion Gap 13.0 mmol/L (16-25) Bedside Blood Urea Nitrogen 7 mg/dl (7-18) Bedside Creatinine 0.5 mg/dl (0.6-1.3) Bedside Glucose (other) 83 mg/dl (70-99) Bedside Ionized Calcium (Casie) 1.16 mmol/l (1.12-1.32) Urine Color YELLOW Urine Appearance CLOUDY (CLEAR) Urine pH 7.0 (4.5-7.5) Urine Specific [place] 1.019 (1.000-1.030) Urine Protein NEG (NEG) Urine Glucose (UA) NEG (NEG) Urine Ketones NEG (NEG) Urine Occult Blood NEG (NEG) Urine Nitrite NEG (NEG) Urine Bilirubin NEG (NEG) Urine Urobilinogen NEG (NEG) Urine Leukocyte Esterase NEG (NEG) Urine WBC (Auto) 0 /hpf (0-5) Urine RBC (Auto) 0-4 /hpf (0-4) Urine Hyaline Casts (Auto) 0 /lpf (0-5) Urine Epithelial Cells (Auto) 5-10 /lpf (0-5) Urine Bacteria (Auto) NEG (NEG) Laboratory results per my review. ECG Per My Interpretation Indication: SOB/dyspnea Rate (beats per minute): 69 Rhythm: sinus rhythm Findings: T-wave inversion (lead 3), other (normal axis) Comparison ECG Date: improved from previous ED Course ED COURSE: Vital signs were reviewed and showed normal vitals. The patients medical record was reviewed The above diagnostic studies were performed and reviewed. ED treatments and interventions as stated above. 1214: The patient was evaluated in room C5. A complete history and physical examination was performed. 1340: Upon reevaluation, the patient is resting.I discussed my findings with the patient and she understands and agrees with the treatment plan. Based on the patients age, coexisting illnesses, exam and lab findings the decision to treat as an outpatient was made. The patient remained stable while under my care. The patient appeared well at the time of discharge. Medical Decision Differential diagnoses includes but is not limited to pneumonia, bronchitis, COPD/Asthma exacerbation, pneumothorax, pulmonary embolism, congestive heart failure, acute coronary syndrome Patient is a 32-year-old female with a past medical history of PEs who presents to ER for shortness of breath and achy chest which has been present for the past 2 days but has near completely resolved today. She is referred in by her doctor. She is currently taking Lovenox. Has not missed any doses. She is 20 weeks . She denies any abdominal pain or vaginal bleeding. No cramping. CBC along with BMP, LFTs, bilirubin lipase negative. Troponin was negative. EKG was improved from previous. UA was negative. Chest x-ray unremarkable. CT PE was performed and shows no clots. Patient was updated at bedside. Vitals are stable. She is otherwise well-appearing. I do favor this is likely consistent with a viral URI. She is discharged follow-up PCP as an outpatient. Discussed with Pt concerning signs and symptoms to watch out for. Pt was instructed to follow up with their PCP and discussed with the patient their option to return to the ED at anytime for persistent or worsening symptoms. The appropriate anticipatory guidance and out-patient management, including indications for return to the emergency department, were explained at length to the patient and understood. Medication Reconcilliation Current Medication List: was personally reviewed by me Blood Pressure Screening Patient's blood pressure: Normal blood pressure Impression Primary Impression: Chest pain Additional Impression: SOB (shortness of breath) Scribe Attestation The scribe's documentation has been prepared under my direction and personally reviewed by me in its entirety. I confirm that the note above accurately reflects all work, treatment, procedures, and medical decision making performed by me. Departure Information Dispostion Home / Self-Care Referrals Shahrzad Banks D.O. (PCP) Patient Instructions Chest Pain - [facility], [facility] Additional Instructions Please follow up with your primary care doctor with in the next 24 hours. Any worsening of your symptoms, please return to the ED immediately. This includes any fevers greater than 100.4, worsening pain, chest pain, shortness breath, persistent nausea, vomiting, unable to eat or drink, or any other concerning signs or symptoms from your standpoint. Problem Qualifiers Primary Impression: Chest pain Chest pain type: unspecified Qualified Codes: R07.9 - Chest pain, unspecified
== END 2017-08-18 14:49 | disposition home or self-care (01) ==
LOC: C.EDB 11:59 → C.EDC 14:49
DX: O99.89 Other specified diseases and conditions complicating pregnancy, childbirth and the puerperium (principal); R07.9 Chest pain, unspecified; R06.02 Shortness of breath; F17.200 Nicotine dependence, unspecified, uncomplicated; Z3A.20 20 weeks gestation of pregnancy; Z79.01 Long term (current) use of anticoagulants; Z86.711 Personal history of pulmonary embolism; Z80.49 Family history of malignant neoplasm of other genital organs

== ENCOUNTER 2018-01-01 21:07 | Inpatient (IN) | payer OTHER ==
[~2018-01-01] VITALS: Ht 170.2 cm; Wt 118.0 kg
[~2018-01-01 21:07] MED LIST changes: -ALBU18002 INH; +BUPR-79 PO; +ENOX60IN SQ; -GUAI100S18; -IBUP1CAP9; -PRED-301 PO; -TYL325X PO
[2018-01-01] MEDS ORDERED: HEPA1INJ (21:34)
[2018-01-01] MEDS ORDERED: LACTATED RINGER'S 1000ML 1,000 ML IV SCH ×2 (21:52→22:06)
[2018-01-01] MEDS ORDERED: LACTATED RINGER'S 1000ML 1,000 ML IV PRN (21:52)
[2018-01-01] MEDS ORDERED: CEFAZOLIN IV 3,000 MG in SYRINGE 0 ML IV STA (21:57)
[2018-01-01 21:58] VITALS: Ht 170.2 cm; Wt 118.0 kg
[2018-01-01] MEDS ORDERED: CEFAZOLIN IV 3,000 MG in DEXTROSE 5% 50ML 50 ML IV ONE (22:00)
[2018-01-01] MEDS ORDERED: CITRIC ACID/SODIUM CITRATE 15 ML UDC PO ONE (22:15)
[2018-01-01 22:19] LABS: HEMATOCRIT 37.4 % (37-47); HEMOGLOBIN 12.7 g/dL (12.0-16.0); MEAN CELL VOLUME 82.7 fL (80-100); MEAN CORPUSCULAR HEMOGLOBIN 28.1 pg (25-34); MEAN PLATELET VOLUME 10.4 fL (7.4-10.4); PLATELET COUNT 324 K/uL (130-400); RED CELL DISTRIBUTION WIDTH CV 13.8 % (11.5-14.5); RED CELL DISTRIBUTION WIDTH SD 41.8 fL (36.4-46.3)
[2018-01-01 22:33] LABS: INR 0.9 (0.9-1.1); PTT PATIENT 25.2 SECONDS (21.0-31.0)
[2018-01-01] MEDS ORDERED: FENTANYL CITRATE INJ 50 MCG/1 ML 2 ML VIAL ONE (22:33)
[2018-01-01] MEDS ORDERED: MoRPHine SULFATE PF 1 MG/ML 10 ML AMP/VIAL ONE (22:33)
[2018-01-01 22:39] LABS: ALBUMIN 2.4 gm/dl (3.4-5.0); CALCIUM 8.7 mg/dl (8.5-10.1); CREATININE 0.65 mg/dl (0.60-1.20); POTASSIUM 4.1 mmol/L (3.5-5.1); TOTAL PROTEIN 7.1 gm/dl (6.4-8.2)
--- NOTE | 2018-01-01 22:49 | HISTORY & PHYSICAL EXAMINATION ---
DATE OF ADMISSION: 01/01/2018 LABOR AND DELIVERY HISTORY AND PHYSICAL CHIEF COMPLAINT: Contractions. HISTORY OF PRESENT ILLNESS: The patient is a 32-year-old G5, P3-0-1-3 at 39 weeks and 3 days of gestation who started to feel contractions at 3:00 p.m. They were irregular initially and then they became more regular and stronger for the last 2 hours. They have been coming every 2-3 minutes and painful. She denies any leakage of fluid or vaginal bleeding. She reports good movements. The patient was originally scheduled for repeat with tubal sterilization tomorrow morning in [place] at [facility]. She lives in [place] and she wanted to come here first to be checked. Her has been complicated by: 1. History of prior 3 C-sections. She desires repeat with tubal ligation this time. 2. History of PE with her third . She was treated at that time. She was put on Lovenox during this and switched to heparin at 36 weeks. She was told not to use heparin for the last 24 hours. She stopped using it 2 days ago. Last dose was 12/30/2017 in the morning. She has not used it for more than 48 hours. 3. Tobacco smoking during . She smokes 1-5 cigarettes per day. 4. 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 She received RhoGAM at 28 weeks. 5. Class-3 obesity. 6. Anemia complicating . She is on iron. 7. History of anxiety. She is on Wellbutrin. 8. 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 Saw [facility] for ultrasounds. PAST MEDICAL HISTORY: As above. The patient denies any other problems. PAST SURGICAL HISTORY: Three prior C-sections, tonsillectomy. MEDICATIONS: vitamins, iron sulfate, Colace, Tylenol as needed for pain, Wellbutrin 150 mg daily, heparin 1000 mg 2 times a day. Last one was on 12/30/2017 in the morning. ALLERGIES: No known drug allergies. LABS: Her blood type is B-negative, antibody screen negative, rubella titer positive, RPR nonreactive, hepatitis B surface antigen negative, HIV nonreactive. Hepatic and kidney functions were normal. GC and chlamydia cultures were negative. Urine culture was negative. One-hour Glucola was 85 mg/dL and GBS culture was negative at 36 weeks. PHYSICAL EXAMINATION: GENERAL: The patient is alert, oriented x3. She is in moderate distress with contractions. VITAL SIGNS: Stable, afebrile. CARDIOVASCULAR SYSTEM: S1, S2, RRR. LUNGS: Clear to auscultation bilaterally. ABDOMEN: Soft, nontender, gravid and contractions every 2-3 minutes. EXTREMITIES: Nontender. No edema. No erythema. No ecchymosis. No bruising. PELVIC: Cervix is 3-4 cm, 80%, -2, vertex with bulging bag. heart rate 130s, reactive, category 1. [place] contractions every 2-4 minutes. ASSESSMENT AND PLAN: The patient is a 32-year-old G5, P3-0-1-3 at 39 weeks and 3 days of gestation with history of prior 3 C-sections, presenting in labor with regular contractions and cervical change. Vital signs stable, afebrile. heart rate reassuring. GBS negative. The patient desires repeat with tubal sterilization, here in [facility]. Discussed with anesthesiologist validation intern and the Labor and Delivery team Plan is to admit her, labs, start IV, SCDs, antibiotic for prophylaxis, and repeat with bilateral tubal ligation. She understands the risks of major surgery including but not limited to bleeding, infection, injury to surrounding organs, adhesion, scarring, blood transfusion, blood cloths in legs, lungs and longer recovery and she signed the informed consent. CALI
[2018-01-01] MEDS ORDERED: OXYTOCIN INJ 10 UNITS/ML VIAL ONE (23:35)
[2018-01-01] MEDS ORDERED: EpHEDrine SULFATE 50MG/5ML SYR ONE (23:35)
[2018-01-01] MEDS ORDERED: ONDANSETRON INJ 2 MG/ML 2 ML VIAL ONE (23:35)
[2018-01-02] VITALS (20 sets, daily range): BP systolic 94–124; BP diastolic 45–76; PULSE 70–82; TEMP 36.6–36.8; O2SAT 96–99
[2018-01-02] MEDS ORDERED: SUPERCREAM 0.870 % 15GM JAR EXT PRN (00:30)
[2018-01-02] MEDS ORDERED: SENNA 8.6 MG TAB PO PRN (00:30)
[2018-01-02] MEDS ORDERED: MAGNESIUM HYDROXIDE SUSP 30 ML UDC PO PRN (00:30)
[2018-01-02] MEDS ORDERED: LACTATED RINGER'S 1000ML 1,000 ML IV SCH (00:30)
[2018-01-02] MEDS ORDERED: LANOLIN OINT EXT PRN (00:30)
[2018-01-02] MEDS ORDERED: BENZOCAINE 20% AER SPR 82.5 GM CAN EXT PRN (00:30)
[2018-01-02] MEDS ORDERED: DIPHTHERIA/TETANUS/PERTUSSIS 0.5 ML SYR/VIAL IM. ONE (00:30)
[2018-01-02] MEDS ORDERED: MEASLES, MUMPS & RUBELLA VIRUS VIAL SQ. ONE (00:30)
[2018-01-02] MEDS ORDERED: PROMETHAZINE HCL INJ 25 MG in SODIUM CHLORIDE 0.9% 50ML 50 ML IV PRN (00:30)
[2018-01-02] MEDS ORDERED: HYDROCORTISONE ACETATE 25 MG SUPP PR PRN (00:30)
--- NOTE | 2018-01-02 00:30 | [facility] Post Operative Brief Note ---
Immediate Operative Summary Operative Date Jan 02, 2018. Pre-Operative Diagnosis 1) LABOR 2) PREVIOUS SECTION X3 3) DESIRES PERMANENT STERILIZATION Post-Operative Diagnosis SAME PREOP Procedure(s) Performed Repeat SECTION AND BILATERAL TUBAL LIGATION Surgeon DR. KIMBALL Cubing Machine Tender Surgeon(s) DR. GAMBOA Estimated Blood Loss 450CC Findings Consistent with Post-Op Diagnosis Fluids (cc crystalloids) 1100 ml lr Specimens 1) CORD BLOOD 2) PLACENTA- HOLD Drains plascencia 100 ml Anesthesia Type Spinal Complication(s) none Disposition Disposition: L&D Overlapping Procedure I was present for: entire case
[2018-01-02] MEDS ORDERED: NALOXONE HCL INJ 1 MG in SODIUM CHLORIDE 0.9% 1000ML 1,000 ML IV PRN (00:38)
[2018-01-02] MEDS ORDERED: SODIUM CHLORIDE 0.9% 1000ML 1,000 ML IV PRN (00:38)
[2018-01-02] MEDS ORDERED: LACTATED RINGER'S 1000ML 500 ML IV PRN (00:38)
[2018-01-02] MEDS ORDERED: NALOXONE HCL INJ 0.08 MG in SYRINGE 1.8 ML IV PRN (00:38)
--- NOTE | 2018-01-02 00:40 | Anesthesiology Progress Note ---
Anesthesia Post Op Note Date & Time Jan 02, 2018 at 00:40 Notes Mental Status: alert / awake / arousable, participated in evaluation Pt Amnestic to Procedure: Yes Nausea / Vomiting: adequately controlled Pain: adequately controlled Airway Patency, RR, SpO2: stable & adequate BP & HR: stable & adequate Hydration State: stable & adequate Neuraxial Anesthesia: was administered, sensory block is resolving Anesthetic Complications: no major complications apparent
[2018-01-02] MEDS ORDERED: MEPERIDINE HCL 25 MG/ML CARP IV PRN (00:45)
[2018-01-02] MEDS ORDERED: DiphenhydrAMINE HCL 50 MG/ML VIAL IV PRN ×2 (00:45→17:19)
[2018-01-02] MEDS ORDERED: CEFAZOLIN IV 3,000 MG in DEXTROSE 5% 50ML 50 ML IV SCH (00:45)
[2018-01-02] MEDS ORDERED: MoRPHine SULFATE PF 1 MG/ML 10 ML AMP/VIAL INT SPINAL PRN (00:45)
[2018-01-02] MEDS ORDERED: NALOXONE HCL 0.4 MG/1 ML VIAL/CARP IV PRN (00:45)
[2018-01-02] MEDS ORDERED: NO NARCOTICS OR SEDATIVES SCH (00:45)
[2018-01-02] MEDS ORDERED: ONDANSETRON INJ 2 MG/ML 2 ML VIAL IV PRN ×2 (00:45→17:19)
[2018-01-02] MEDS ORDERED: NALBUPHINE HCL INJ 10 MG/ML 1ML AMP IV PRN (00:45)
[2018-01-02] MEDS ORDERED: DC INTRASPINAL MORPHINE SCH (00:45)
[2018-01-02] MEDS ORDERED: EpHEDrine SULFATE INJ 50 MG/ML AMP IV PRN ×2 (00:45)
[2018-01-02] MEDS ORDERED: MoRPHine SULFATE 2 MG/ML CARP IV PRN (00:45)
[2018-01-02] MEDS: OXYTOCIN INJ 20 UNITS in LACTATED RINGER'S 1000ML 1,000 ML IV SCH ×2 (01:13→10:22)
--- NOTE | 2018-01-02 01:56 | OPERATIVE REPORT ---
DATE OF OPERATION: 01/01/2018 DATE OF SURGERY: Started before midnight on 01/01/2018 and finished after midnight on 01/02/2018 morning. PREOPERATIVE DIAGNOSIS: The patient is a 32-year-old G5, P3-0-1-3 at 39 weeks and 3 days of gestation who has history of prior 3 C-sections and scheduled repeat with permanent sterilization with bilateral tubal ligation on the morning of 01/02/18. She presented in labor with uterine contractions on 01/01 evening and desired repeat and permanent sterilization with bilateral tubal ligation. POSTOPERATIVE DIAGNOSIS: same. PROCEDURE: Repeat low transverse with Pfannenstiel skin incision and bilateral tubal sterilization with Keanu method and delivery of a viable male on 01/01/2018 at 2340 hours. SURGEON: Dr. Gregg. SENIOR DATA WAREHOUSE ARCHITECT: Dr. Thomas. ESTIMATED BLOOD LOSS: 450 mL. FLUIDS: 1100 mL of lactated Ringer's. SPECIMENS: Cord blood and placenta. DRAINS: Almanzar catheter drained 100 mL of clear urine. ANESTHESIA: Spinal, Dr. Wray. COMPLICATIONS: None. FINDINGS: Baby was in cephalic presentation, delivered at 2340 hours, a viable male , Apgars 8/9. Weight was 3200 grams. Maternal findings: There were some areas of scarring on the fascia and abdominal wall attributed to the prior history of C-sections and a normal uterus, fallopian tubes, and ovaries. DESCRIPTION OF PROCEDURE: The patient was taken to the operating room where spinal anesthesia was given without difficulty. She was placed in dorsal supine position with a leftward tilt. She was prepared and draped in usual sterile fashion. A Pfannenstiel skin incision was made from the old incision scar and carried through to the underlying layer of fascia with a new scalpel and then with the tip of Bovie. Fascia was incised in the midline and incision was extended laterally with the help of Bond scissors. The upper aspect of the fascial incision was then grasped with 2 Todd clamps, elevated, underlying rectus muscles were dissected sharply with Bond scissors and the scalpel. There were some adhesions/ scarring between the rectus fascia and the rectus muscles. They were reduced gently with the help of scalpel. Then the lower aspect of the fascial incision was grasped with 2 Todd clamps, elevated, underlying rectus muscles were dissected sharply with Bond scissors. The rectus muscles were in the midline and the peritoneum was entered bluntly with the fingers and the muscles and the peritoneum were elevated. Those muscles in midline were with the help of Bond scissors and the peritoneum with the help of Metzenbaum scissors and while visualizing the bladder and the intraabdominal cavity. Then this opening was stretched with the surgeon's hands. Bladder blade was inserted. Vesicouterine peritoneum was identified, grasped with pickups, entered sharply with Metzenbaum scissors. The flap was created with the help of fingers as well as sharp dissection with the tip of Metzenbaum and then the bladder blade was reinserted. Lower uterine segment was incised in transverse fashion, incision was extended laterally with the help of fingers and membranes were ruptured. Clear fluid was obtained. Baby's head was delivered without difficulty. Shoulders were delivered with minimal traction. Baby's mouth and nose were suctioned on the field. Cord was clamped x2 and cut and then baby was handed off to the waiting spool fixer, Dr. Galvez and nursery team. The placenta was delivered manually as intact and complete. Uterus was exteriorized, cleared of all clots and debris. Uterine incision was inspected. There was about 2 cm extension down into the left lower corner of the uterine incision. This extension was held with 2 T clamps and this was repaired first from the corner till the uterine horizontal incision with 0 Vicryl in a running fashion. Excellent hemostasis was achieved. The rest of the original transverse incision on the uterus was repaired with 0 Vicryl in a running locked fashion. There was some oozing in the middle of the incision. Those were controlled with [id number] stitches x2 with 0 Vicryl. Excellent hemostasis was achieved. Then, the posterior cul-de-sac was inspected to be normal, normal uterus, ovaries and fallopian tubes. It was irrigated with normal saline and suctioned. Then the right fallopian tube was grasped with 2 Reading clamps, elevated. The mesosalpinx was entered on the avascular site with 2-0 plain catgut and it was tied around the tube and the loop was made under the tip of 2 Reading clamps and it was tied twice and then about 3 cm fallopian tube was incised above this loop and sent to pathology. The site was hemostatic. Attention was turned to the left fallopian tube, which was also grasped with 2 Gaby clamps, elevated, and the mesosalpinx was entered from the avascular site with 2-0 plain catgut and then the tube was tied with this catgut and the loop was made around these clamps and then 2 ties were placed under this loop and then the fallopian tube above the loop was incised and about 3 cm piece was removed from the left side, sent to pathology and the rest of the fallopian tube was hemostatic. The uterine incision was checked to be hemostatic again. The uterus was returned to the abdomen and pelvis was irrigated with warm normal saline and suctioned. Incision was inspected to be hemostatic again as well as fallopian tubes were visualized to be hemostatic. The parietal peritoneum together with their rectus muscles were reapproximated with 3-0 Vicryl in a running fashion and the rectus fascia was reapproximated with 0 Vicryl in a running fashion starting from both corners meeting in the midline. Subcuticular fat tissue was brought together with 3-0 Vicryl in a running fashion. The skin was closed with 4-0 Monocryl in a subcuticular fashion. The patient tolerated the procedure well. Sponge, lap, needle, instrument count was correct x3. She was given 3 grams of cefazolin before surgery. She was taken to recovery room in stable condition. No complications happened. I was and Dr. Thomas was present during whole procedure. I attest to the content of the Intraoperative Record and any orders documented therein. Any exceptions are noted below. CALI
[2018-01-02] MEDS: KETOROLAC TROMETHAMINE 30 MG/ML VIAL IV. PRN ×3 (03:55→16:32)
[2018-01-02] MEDS: CEFAZOLIN IV 3,000 MG in SYRINGE 0 ML IV SCH ×2 (05:35→14:06)
[2018-01-02] MEDS ORDERED: NURSING VERBAL MED ORDER ONE (07:00)
[2018-01-02] MEDS: FERROUS SULFATE 325 MG TAB PO SCH (08:24)
[2018-01-02] MEDS: SIMETHICONE 80 MG CHEW PO SCH ×4 (08:24→19:48)
[2018-01-02] MEDS: DOCUSATE SODIUM 100 MG CAP PO SCH ×2 (08:24→19:48)
[2018-01-02] MEDS: ENOXAPARIN 40 MG/0.4 ML SYR SQ SCH (08:27)
[2018-01-02] MEDS: BuPROPion SR 150 MG TABCR PO SCH (08:34)
--- NOTE | 2018-01-02 12:36 | Progress Note ---
Subjective Jan 02, 2018. Subjective conversation w/ patient Voiding: no voiding problems Passing Gas: Yes Diet Tolerance: Regular Diet Lochia: Moderate Feeding Type: Breast Feeding Pain: Well controlled Review of Systems Constitutional: No fever, No chills, No sweats, No weight loss, No weakness, No fatigue, No problem reported Respiratory: No cough, No sputum, No wheezing, No shortness of breath, No dyspnea on exertion, No dyspnea at rest, No hemoptysis, No problem reported Cardiac: No chest pain, No orthopnea, No PND, No edema, No claudication, No palpitations, No problem reported Breast: No see HPI, No breast lump, No change in shape, No nipple discharge, No breast pain, No problem reported Abdomen: No pain, No nausea, No vomiting, No diarrhea, No constipation, No GI bleeding, No problem reported Female : No see HPI, No dysuria, No urinary frequency, No hematuria, No incontinence, No abnormal vaginal bleeding, No vaginal discharge, No problem reported Objective Vital Signs Date Time Temp Pulse Resp B/P (MAP) Pulse Ox O2 Delivery O2 Flow Rate FiO2 01/02/18 11:34 18 97 01/02/18 11:34 36.8 74 18 114/71 (85) 97 Room Air 01/02/18 10:30 20 99 01/02/18 09:30 18 98 01/02/18 08:30 18 97 01/02/18 08:00 98 Room Air 01/02/18 07:59 36.8 73 18 105/63 (77) 97 Room Air 01/02/18 07:30 16 97 01/02/18 06:30 18 98 01/02/18 05:34 18 98 01/02/18 04:28 36.6 76 20 104/57 (73) 97 Room Air 01/02/18 04:28 20 97 01/02/18 03:20 36.7 70 20 105/53 (70) 99 Room Air 01/02/18 03:20 99 Room Air 01/02/18 03:20 20 99 01/02/18 03:20 99 Room Air Physical Exam General Appearance: WELL-APPEARING Laboratory Results Last 24 Hours Test 01/01/18 22:04 01/02/18 02:47 White Blood Count 18.00 K/uL Red Blood Count 4.52 M/uL Hemoglobin 12.7 g/dL Hematocrit 37.4 % Mean Corpuscular Volume 82.7 fL Mean Corpuscular Hemoglobin 28.1 pg Mean Corpuscular Hemoglobin Concent 34.0 g/dl RDW Standard Deviation 41.8 fL RDW Coefficient of Variation 13.8 % Platelet Count 324 K/uL Mean Platelet Volume 10.4 fL Prothrombin Time 9.2 SECONDS Prothromb Time International Ratio 0.9 Activated Partial Thromboplast Time 25.2 SECONDS Partial Thromboplastin Ratio 1.0 Sodium Level 135 mmol/L Potassium Level 4.1 mmol/L Chloride Level 105 mmol/L Carbon Dioxide Level 22 mmol/L Anion Gap 9.0 mmol/L Blood Urea Nitrogen 12 mg/dl Creatinine 0.65 mg/dl Est Creatinine Clear Calc Drug Dose 166.6 ml/min Estimated GFR () 137.1 Estimated GFR (Non- 118.3 BUN/Creatinine Ratio 19.0 Random Glucose 82 mg/dl Calcium Level 8.7 mg/dl Total Bilirubin 0.2 mg/dl Aspartate Amino Transf (AST/SGOT) 16 U/L Alanine Aminotransferase (ALT/SGPT) 27 U/L Alkaline Phosphatase 180 U/L Total Protein 7.1 gm/dl Albumin 2.4 gm/dl Globulin 4.7 gm/dl Albumin/Globulin Ratio 0.5 Urine Color YELLOW Urine Appearance CLEAR Urine pH 7.0 Urine Specific [place] 1.017 Urine Protein NEG Urine Glucose (UA) NEG Urine Ketones NEG Urine Occult Blood 2+ Urine Nitrite NEG Urine Bilirubin NEG Urine Urobilinogen NEG Urine Leukocyte Esterase NEG Urine WBC (Auto) 1-5 /hpf Urine RBC (Auto) >30 /hpf Urine Hyaline Casts (Auto) 1-5 /lpf Urine Epithelial Cells (Auto) 20-30 /lpf Urine Bacteria (Auto) NEG Assessment and Plan Problem List Medical Problems: (1) Chest pain Status: Acute (2) Second trimester Status: Acute Day#: 1
[2018-01-02] MEDS ORDERED: KETOROLAC TROMETHAMINE 30 MG/ML VIAL IV. PRN (17:19)
[2018-01-02] MEDS ORDERED: OXYCODONE/ACETAMINOPHEN 5-325 TAB PO PRN (17:19)
[2018-01-02] MEDS ORDERED: MEPERIDINE HCL 50 MG/ML CARP IV PRN ×2 (17:19)
[2018-01-02] MEDS: AMOXICILLIN/CLAVULANATE TAB 875 MG TAB PO SCH (17:36)
[2018-01-02] MEDS: OXYCODONE/ACETAMINOPHEN 5-325 TAB PO PRN (20:44)
[2018-01-03] MEDS: IBUPROFEN 600 MG TAB PO PRN ×4 (01:52→15:26)
[2018-01-03] MEDS: OXYCODONE/ACETAMINOPHEN 5-325 TAB PO PRN ×4 (01:59→15:26)
[2018-01-03 06:50] LABS: BASO % 0.1 %; BASO ABS # 0.02 K/uL (0-0.2); EOS % 0.7 %; EOS ABS # 0.09 K/uL (0-0.5); HEMATOCRIT 32.9 % (37-47); HEMOGLOBIN 10.8 g/dL (12.0-16.0); IG# 0.05 K/uL (0.00-0.02); LYMPH % 19.3 %; MEAN CELL VOLUME 84.6 fL (80-100); MEAN CORPUSCULAR HEMOGLOBIN 27.8 pg (25-34); MEAN CORPUSCULAR HGB CONC 32.8 g/dl (32-36); MEAN PLATELET VOLUME 10.2 fL (7.4-10.4); MONO % 5.6 %; MONO ABS # 0.75 K/uL (0.11-0.59); NEUT % 73.9 %; NEUT ABS # 9.99 K/uL (1.4-6.5); PLATELET COUNT 247 K/uL (130-400); RED CELL DISTRIBUTION WIDTH CV 14.6 % (11.5-14.5); RED CELL DISTRIBUTION WIDTH SD 44.6 fL (36.4-46.3)
[2018-01-03] MEDS: BuPROPion SR 150 MG TABCR PO SCH (07:46)
[2018-01-03] MEDS: DOCUSATE SODIUM 100 MG CAP PO SCH (07:46)
[2018-01-03] MEDS: SIMETHICONE 80 MG CHEW PO SCH ×3 (07:47→17:41)
[2018-01-03] MEDS: FERROUS SULFATE 325 MG TAB PO SCH (07:47)
[2018-01-03] MEDS: AMOXICILLIN/CLAVULANATE TAB 875 MG TAB PO SCH ×2 (07:48→17:41)
[2018-01-03 07:50] VITALS: BP 123/88; PULSE 66; TEMP 36.8
[2018-01-03] MEDS: ENOXAPARIN 40 MG/0.4 ML SYR SQ SCH (07:50)
--- NOTE | 2018-01-03 09:11 | Surgery Progress Note ---
Surgery Progress Note Date of Service Jan 03, 2018. Subjective Post OP Day: 2 + feeling well, + ambulating, + flatus, + pain controlled, + diet Objective Vital Signs: Date Time Temp Pulse Resp B/P (MAP) Pulse Ox O2 Delivery O2 Flow Rate FiO2 01/03/18 07:50 36.8 66 16 123/88 (100) 01/02/18 23:05 36.6 74 18 96/54 (68) Room Air 01/02/18 23:05 98 Room Air 01/02/18 20:05 99 Room Air 01/02/18 20:05 36.8 82 18 124/76 (92) 99 Room Air 01/02/18 17:30 18 97 01/02/18 16:30 18 97 01/02/18 15:15 98 Room Air 01/02/18 14:58 36.8 76 18 109/53 (71) 98 Room Air 94/45 (61) 01/02/18 13:30 16 96 01/02/18 12:30 18 96 01/02/18 11:34 18 97 01/02/18 11:34 36.8 74 18 114/71 (85) 97 Room Air 01/02/18 10:30 20 99 01/02/18 09:30 18 98 General Appearance: no apparent distress Abdomen: non tender, non distended, soft Incision(s): clean, dry, intact Extremities: non-tender, normal inspection, no pedal edema, no calf tenderness Laboratory Results: Results Past 24 Hours Test 01/03/18 06:23 Range/Units White Blood Count 13.50 4.8-10.8 K/uL Red Blood Count 3.89 4.2-5.4 M/uL Hemoglobin 10.8 12.0-16.0 g/dL Hematocrit 32.9 37-47 % Mean Corpuscular Volume 84.6 80-100 fL Mean Corpuscular Hemoglobin 27.8 25-34 pg Mean Corpuscular Hemoglobin Concent 32.8 32-36 g/dl Platelet Count 247 130-400 K/uL Mean Platelet Volume 10.2 7.4-10.4 fL Neutrophils (%) (Auto) 73.9 % Lymphocytes (%) (Auto) 19.3 % Monocytes (%) (Auto) 5.6 % Eosinophils (%) (Auto) 0.7 % Basophils (%) (Auto) 0.1 % Neutrophils # (Auto) 9.99 1.4-6.5 K/uL Lymphocytes # (Auto) 2.60 1.2-3.4 K/uL Monocytes # (Auto) 0.75 0.11-0.59 K/uL Eosinophils # (Auto) 0.09 0-0.5 K/uL Basophils # (Auto) 0.02 0-0.2 K/uL RDW Standard Deviation 44.6 36.4-46.3 fL RDW Coefficient of Variation 14.6 11.5-14.5 % Immature Granulocyte % (Auto) 0.4 % Immature Granulocyte # (Auto) 0.05 0.00-0.02 K/uL Assessment & Plan POD#2 discharged follow up in office next week regular diet
[2018-01-03] MEDS ORDERED: LVNIS40 SQ (09:14)
[2018-01-03] MEDS ORDERED: OXYC-57 PO (09:14)
[2018-01-03] MEDS ORDERED: MTR600X PO (09:14)
--- NOTE | 2018-01-03 09:15 | Discharge Instructions ---
Discharge Instructions Date of Service Jan 03, 2018. Admission Reason for Admission: Check Labor Discharge Discharge Diagnosis / Problem: repeat Discharge Goals Goal(s): Routine recovery after Activity Recommendations Activity Limitations: as noted below Lifting Limitations: no more than 10 pounds Exercise/Sports Limitations: gradually increase as tolerated May Resume Sexual Activity: after follow-up appointment Shower/Bathe: no limitations Driving or Machine Use: resume 3 days after discharge . Instructions / Follow-Up Instructions / Follow-Up ACTIVITY RECOMMENDATIONS: * Gradual return to full activity over the next 2-3 weeks. * No lifting - nothing heavier than baby over the next 2-3 weeks. * Do not engage in vigorous exercise, sexual activity or sports until cleared by your physician. * Do not drive or operate any motorized equipment until cleared by your physician. * You may shower/bathe daily. BREAST CARE: If you are not breast feeding: * Wear a supportive bra 24 hours a day for one to two weeks. * Avoid stimulating your breasts and nipples as much as possible during the first few weeks after delivery. * When taking a shower, have the warm water hit your back, not breasts. * When your breasts feel full, apply ice packs. Usually three to four times a day helps ease the discomfort. * Take a mild pain medication (Tylenol/Motrin) when you are uncomfortable. If breast feeding: * Use breast milk to lubricate nipples. Lansinoh cream may be used for sore nipples. You do not need to remove cream prior to breast feeding. If using a different brand of cream, check the label for directions regarding removal of cream prior to nursing. * Wear a supportive bra. * If having problems with breasts or breast feeding, call a sustainability consultant or your health care provider. OVER THE COUNTER MEDICATION: * For discomfort or pain, you may use Acetaminophen (Tylenol), Ibuprofen (Advil ), or Naproxen (Aleve) following the package directions. * For constipation you may use Colace following the package directions. SPECIAL CARE INSTRUCTIONS: When you are discharged from the hospital, it is important for you to follow the instructions listed below: * During the first week at home, you should be able to care for yourself and your baby. In addition, the usual light household activities are encouraged. * Limit your activities to the way you feel. Do not try to clean the house or move furniture. Be sensible. * If you actively engage in sports and have done so up until the time of your delivery, you may resume these activities as soon as you feel able. This may take up to one month or even longer. Use good judgment. * Continue to take your vitamins for at least six weeks after the of your baby. * Your diet need not be limited unless you were on a special diet before your delivery. Breast-feeding mothers need around 2500 calories per day and at least 64-80 ounces of fluid per day (8 to 10 glasses). * You should eat foods from the four major food groups. Crash diets or fad diets are to be avoided. Eating lean meats, fresh fruits and vegetables, low-fat dairy products, high fiber foods and a regular exercise program, will help you get back to your pre- weight without putting your health at risk. * Constipation is sometimes a problem after delivery. Take a mild laxative as needed. If breast feeding, Milk of Magnesia is acceptable to use. You may use a suppository or Fleets enema if no episiotomy. * A daily shower or tub bath is suggested. Be sure to thoroughly and gently dry the perineum. * A bloody vaginal discharge will usually continue until around four weeks post . A small amount of bleeding may continue for as long as six weeks. Vaginal discharge changes from the bright red bleeding after delivery to pink then brownish and finally yellowish-pink before becoming white and disappearing. * Bleeding may increase with activity. Your first period may come in 4-8 weeks. If you are breast feeding, your period may be delayed even longer. * Alcova (sex) can begin whenever both you and your partner feel comfortable and do not have any form of genital infection. It is recommended that you wait at least six weeks for internal and external healing to occur. If you have questions, please talk to your health care practitioner. A condom should be used to prevent infection and . * Foreplay, gentle intercourse and lubrication is very important the first several times to prevent pain. A water-based lubricant such as K-Y jelly or Astroglide may be used. * Tampons and/or Douching should be avoided until after six weeks check-up. * If you have RH negative blood and your baby is RH positive, you will receive RHOGAM by injection prior to discharge. The nurse will give you a card to keep with you that has the date and place that you received RHOGAM after delivery. * During your care, you had a Rubella screen done to check for the presence of rubella antibodies in your blood. If your test was negative, you will receive a Rubella vaccine prior to discharge. This vaccine may cause a fever, soreness at the injection site and flu-like symptoms. If these symptoms persist, notify your health care practitioner. is not advised for three months after a Rubella vaccine. * Verbalizes understanding of car seat law as reviewed with patient nursing. * Car Seat hand-out given and reviewed with patient by nursing. * Shaken baby information reviewed with patient by nursing. Call you doctor if: * Heavy bleeding (saturating several pads an hour) or passing clots the size of your fist. * A fever >101 degrees F (38.3 degrees C) on two occasions four hours apart and /or chills. * Unusual pain in the pelvic or vaginal areas. Pain should improve each day . * Call the doctor for any increased redness, drainage or swelling around the incision and any pain unrelieved by prescribed pain medication. * Any signs or symptoms of phlebitis (possible blood clots forming in the veins ): leg pain, warm, red or swollen area on leg. * "Baby Blues" lasting longer than two weeks. If you have any questions or concerns, call your health care practitioner at . FOLLOW-UP VISIT: * Incision check (staple removal) in 1 week. Please call doctor's office at to set up appointment. * Please call the office at to schedule a 6 week examination. It is important you keep this appointment. * It is important for you to make arrangements for either yearly or twice yearly check-ups thereafter. Current Hospital Diet Patient's current hospital diet: Regular OB Diet Discharge Diet Recommended Diet: Regular Diet Procedures Procedures Performed: Repeat SECTION AND BILATERAL TUBAL LIGATION Pending Studies Studies pending at discharge: no Medical Emergencies . Who to Call and When: Medical Emergencies: If at any time you feel your situation is an emergency, please call 911 immediately. . Non-Emergent Contact Non-Emergency issues call your: Primary Care Provider . . "Provider Documentation" section prepared by Clifton Mendoza. .
[2018-01-03 11:45] VITALS: BP 130/78; PULSE 71; TEMP 36.7; O2SAT 99
[2018-01-03 15:50] VITALS: BP 128/71; PULSE 68; TEMP 36.7; O2SAT 99
[2018-01-03] MEDS ORDERED: BISACODYL 5 MG TABEC PO ONE (22:00)
[2018-01-04] MEDS ORDERED: BISACODYL 10 MG SUPP PR PRN (00:30)
== END 2018-01-03 19:05 | disposition home or self-care (01) | DRG 766 ==
LOC: C.LD 21:07 → C.OPB 21:07 → C.LD 21:56 → C.OPB 21:56 → C.OBG 01-02 03:08
PROVIDERS: ADMIT Obstetrics & Gynecology; ATTEND Obstetrics & Gynecology
PROC: 0UB70ZZ Excision of Bilateral Fallopian Tubes, Open Approach (ICD-10-PCS; principal; 2018-01-01 23:10)
PROC: 10D00Z1 Extraction of Products of Conception, Low, Open Approach (ICD-10-PCS; principal; 2018-01-01 23:10)
DX: O34.211 Maternal care for low transverse scar from previous cesarean delivery (principal); O99.334 Smoking (tobacco) complicating childbirth; O99.214 Obesity complicating childbirth; O99.344 Other mental disorders complicating childbirth; O99.02 Anemia complicating childbirth; F41.9 Anxiety disorder, unspecified; Z37.0 Single live birth; Z30.2 Encounter for sterilization; Z3A.39 39 weeks gestation of pregnancy; Z86.711 Personal history of pulmonary embolism